=== PATIENT | female | born 1965 | race Caucasian/White ===

== ENCOUNTER 2020-04-21 07:57 | Outpatient (REF) | payer OTHER, SELFPAY ==
--- NOTE | ~2020-04-21 | MM_ITS ---
EXAMINATION: MM SCREENING DIGITAL BREAST TOMOSYNTHESIS, BILATERAL CLINICAL INFORMATION: Screening. Asymptomatic. The lifetime risk of breast cancer based on the Tyrer-Cuzick Model is 6%. COMPARISON: Mammography: 04/03/2018 (new baseline). TECHNIQUE: Digital breast tomosynthesis is performed in both the craniocaudal and mediolateral oblique views along with computer-aided detection (CAD). Synthesized 2D images are generated from the tomosynthesis. FINDINGS: There are scattered areas of fibroglandular density (ACR BI-RADS breast composition Category b). There are no significant masses, abnormal calcifications, or other abnormalities. Parenchymal pattern is similar to prior studies. Skin contours are smooth. MM/MM tomosynthesis screening BI IMPRESSION: No mammographic evidence of malignancy. ASSESSMENT: BI-RADS 1: Negative RECOMMENDATION: Routine annual mammography screening. This patient's information was entered into a reminder system with a target due date for their next mammogram.
== END 2020-04-21 07:58 | disposition home or self-care (01) ==
LOC: HO.MAMMO 07:57
PROVIDERS: Visit Provider Registered Nurse
DX: Z12.31 Encounter for screening mammogram for malignant neoplasm of breast (principal)
CPT/HCPCS: 77063; 77067

== ENCOUNTER → 2020-06-15 09:09 | Outpatient (BNVA) | payer OTHER, SELFPAY | PROVIDERS: Visit Provider Nurse Practitioner | DX: Z12.11 Encounter for screening for malignant neoplasm of colon (principal) | CPT/HCPCS: Q3014 ==

== ENCOUNTER 2022-05-16 13:44 | Outpatient (REF) | payer OTHER, SELFPAY ==
--- NOTE | ~2022-05-16 | MM_ITS ---
EXAMINATION: MM SCREENING DIGITAL BREAST TOMOSYNTHESIS, BILATERAL CLINICAL INFORMATION: Screening. Asymptomatic. The lifetime risk of breast cancer based on the Tyrer-Cuzick Model is 10%. COMPARISON: Mammography: 04/21/2020, 04/03/2018 (new baseline). TECHNIQUE: Digital breast tomosynthesis is performed in both the craniocaudal and mediolateral oblique views along with computer-aided detection (CAD). Synthesized 2D images are generated from the tomosynthesis. FINDINGS: There are scattered areas of fibroglandular density (ACR BI-RADS breast composition Category b). There are no significant masses, abnormal calcifications, or other abnormalities. Parenchymal pattern is similar to prior studies. There is no developing density or architectural abnormality. The axilla and skin contours are unremarkable. No significant changes. MM/MM tomosynthesis screening BI IMPRESSION: No mammographic evidence of malignancy. ASSESSMENT: BI-RADS 1: Negative RECOMMENDATION: Routine annual mammography screening. This patient's information was entered into a reminder system with a target due date for their next mammogram.
== END 2022-05-16 13:45 | disposition home or self-care (01) ==
LOC: HO.MAMMO 13:44
PROVIDERS: PCP Nurse Practitioner Primary Care; Visit Provider Nurse Practitioner Primary Care
DX: Z12.31 Encounter for screening mammogram for malignant neoplasm of breast (principal)
CPT/HCPCS: 77063; 77067

== ENCOUNTER 2022-11-21 09:24 | Outpatient (REF) | payer OTHER, SELFPAY ==
[2022-11-21 11:48] LABS: Estimated Average Glucose 131 mg/dL; Hemoglobin A1c % 6.2 % (<6.0)
[2022-11-21 12:46] LABS: Anion Gap 19 (12-20); Blood Urea Nitrogen 20 mg/dL (9-16); Calcium 10.2 mg/dL (8.4-10.2); Carbon Dioxide 22 mmol/L (22-29); Chloride 104 mmol/L (96-108); Cholesterol 150 mg/dL (<200); Creatinine Urine 104.84 mg/dL; Estimated Glomerular Filt Rate > 60; Glucose Random 122 mg/dL (60-115); HDL Cholesterol 47 mg/dL (>40); LDL Cholesterol Calculated 78 mg/dL (<100); Microalbum/Creatinine Ratio Ur 27.6 ug/mg cr (<30); Sodium 140 mmol/L (135-145); Triglycerides 125 mg/dL (<150)
[2022-11-21 12:47] LABS: TSH reflex Free T4 1.45 uIU/mL (0.32-4.0)
[2022-11-25 01:38] LABS: VITAMIN D (1,25 OH) D3 34 pg/mL; Vit D (1,25-Dihydroxy) Total 34 pg/mL (18-72); Vitamin D (1,25 OH) D2 <8 pg/mL
== END 2022-11-21 09:25 | disposition home or self-care (01) ==
LOC: HO.HHCL 09:24
PROVIDERS: Visit Provider Nurse Practitioner Primary Care
DX: Z00.00 Encounter for general adult medical examination without abnormal findings (principal); E11.69 Type 2 diabetes mellitus with other specified complication; E78.5 Hyperlipidemia, unspecified; M85.859 Other specified disorders of bone density and structure, unspecified thigh; E21.3 Hyperparathyroidism, unspecified; I10 Essential (primary) hypertension
CPT/HCPCS: 36415; 80048; 80061; 82043; 82570; 82652; 83036; 84443

== ENCOUNTER 2023-05-25 12:39 | Outpatient (REF) | payer MEDICAID, SELFPAY ==
--- NOTE | ~2023-05-25 | MM_ITS ---
EXAMINATION: BONE DENSITOMETRY CLINICAL INDICATION: Hyperparathyroidism. COMPARISON: Baseline BD dated 12/25/2018. TECHNIQUE: Using a Estify DXA System (software version: 13.1) manufactured by [email or web address], dual-energy x-ray absorptiometry was performed of the lumbar spine, left hip and left forearm radius 33%. The images are of good technical quality. Summary results are attached. FINDINGS: LEFT FEMUR, NECK: Current: BMD 0.769 g/cm2, Z-score -0.9, T-score -1.9, osteopenia. Baseline: BMD 0.750 g/cm2. LEFT FEMUR, TOTAL: Current: BMD 0.831 g/cm2, Z-score -0.7, T-score -1.4, osteopenia, 5.2% decrease from baseline (<5% change is not significant). Baseline: BMD 0.877 g/cm2. AP SPINE L1-L3 (excluding L4): The data of L1-L4 has been changed to exclude the L4 vertebral body, because degenerative sclerosis at this level may cause overestimation of lumbar spine density. Current: BMD 0.924 g/cm2, Z-score -1.1, T-score -2.1, osteopenia, 2.0% increase from baseline (<5% change is not significant). Baseline: BMD 0.906 g/cm2. LEFT FOREARM RADIUS 33%: BMD 0.812 g/cm2, Z-score -0.2, T-score -0.9, normal, 3.7% decrease from baseline (<5% change is not significant). Baseline: BMD 0.843 g/cm2. IDENTIFIED RISK FACTORS: Early menopause, secondary osteoporosis, hyperparathyroidism, hysterectomy. HISTORY OF FRACTURE: None listed. MEDICATIONS: Vitamin D. MM/XR DEXA appendicular skeleton IMPRESSION: 1. DIAGNOSIS: Osteopenia based on the lowest T-score value of -2.1 in the lumbar spine applying World Health Organization criteria. 2. 10-YEAR FRACTURE RISK PREDICTION, FRAX: Major osteoporotic fracture (clinical spine, forearm, hip or shoulder) 4.5%. Hip fracture 0.5%. 3. Treatment Recommendations: NOF guidelines recommend consideration for treatment in postmenopausal women and men age 50 and older presenting with the following: -A hip or vertebral (clinical or morphometric) fracture. -T-score less than or equal to -2.5 at the femoral neck or spine after appropriate evaluation to exclude secondary causes. -Low bone mass at the hip or spine and a 10-year fracture probability by FRAX of greater than or equal to 3% for hip fracture or greater than or equal to 20% for major osteoporotic fracture based on the [place] adapted WHO algorithm. 4. Other Recommendations: All treatment decisions require clinical judgment and consideration of individual patient factors, including patient preferences, comorbidities, previous drug use, risk factors not captured in the FRAX model (e.g. frailty, falls, vitamin D deficiency, increased bone turnover, interval significant decline in bone density) and possible under or overestimation of fracture risk by FRAX. Additional medical evaluation for secondary cause of low bone mineral density may be appropriate. FUTURE SCAN RECOMMENDATION: People with diagnosed cases of osteoporosis or at high risk for fracture should have regular bone mineral density tests. For patients eligible for Medicare, routine testing is allowed once every 2 years. The testing frequency can be increased to one year for patients who have rapidly progressing disease, those who are receiving or discontinuing medical therapy to restore bone mass, or have additional risk factors.
== END 2023-05-25 12:40 | disposition home or self-care (01) ==
LOC: HO.MAMMO 12:39
PROVIDERS: PCP Nurse Practitioner Primary Care; Visit Provider Nurse Practitioner Primary Care
DX: M85.859 Other specified disorders of bone density and structure, unspecified thigh (principal); E21.3 Hyperparathyroidism, unspecified; Z12.31 Encounter for screening mammogram for malignant neoplasm of breast; Z13.820 Encounter for screening for osteoporosis; Z78.0 Asymptomatic menopausal state
CPT/HCPCS: 77063; 77067; 77081

== ENCOUNTER → 2023-05-25 13:30 | Outpatient (BNV) | payer MEDICAID, SELFPAY | PROVIDERS: PCP Nurse Practitioner Primary Care; Visit Provider Radiology Diagnostic Radiology | DX: Z12.31 Encounter for screening mammogram for malignant neoplasm of breast (principal) | CPT/HCPCS: 77063; 77067 ==

== ENCOUNTER 2023-12-19 08:51 | Outpatient (REF) | payer MEDICAID, SELFPAY ==
[2023-12-19 11:29] LABS: MANUAL DIFF FLAG NO
[2023-12-19 11:35] LABS: Basophils Absolute Auto 0.1 X10*3/uL (0.0-0.2); Basophils Percent Auto 0.6 % (0-2); Eosinophils Absolute Auto 0.2 X10*3/uL (0.0-0.4); Eosinophils Percent Auto 2.2 % (0-4); Hematocrit 35.3 % (37.0-47.0); Hemoglobin 11.2 g/dl (12.0-16.0); Imm Gran Abs Auto 0.04 X10*3/uL (0.00-0.03); Imm Gran Pct Auto 0.4 % (0.0-0.4); Lymphocytes Absolute Auto 2.4 X10*3/uL (1.2-4.9); Lymphocytes Percent Auto 26.8 % (20-40); Mean Corpuscular HGB Conc 31.7 g/dl (31.0-35.0); Mean Corpuscular Hemoglobin 29.1 pg (27.0-33.0); Mean Corpuscular Volume 91.7 fL (80.0-98.0); Mean Platelet Volume 9.9 fL (9.4-12.3); Monocytes Absolute Auto 0.6 X10*3/uL (0.1-1.2); Monocytes Percent Auto 6.7 % (2-11); Neutrophils Absolute Auto 5.7 x10*3/uL (2.0-8.3); Neutrophils Percent Auto 63.3 % (45-73); Platelet Count 421 X10*3/uL (160-400); Red Blood Count 3.85 X10*6/uL (4.20-5.50); Red Cell Distribution Width 12.5 % (11.0-16.0); White Blood Count 9.1 X10*3/uL (4.8-10.8)
[2023-12-19 12:01] LABS: Alanine Aminotransferase 25 U/L (0-31); Albumin Level 4.5 g/dL (3.5-5.0); Alkaline Phosphatase 76 U/L (39-117); Anion Gap 15 (12-20); Aspartate Amino Transferase 34 U/L (5-31); Bilirubin Total 0.3 mg/dL (0.0-1.0); Blood Urea Nitrogen 24 mg/dL (9-16); Calcium 10.8 mg/dL (8.4-10.2); Carbon Dioxide 23 mmol/L (22-29); Chloride 105 mmol/L (96-108); Estimated Glomerular Filt Rate > 60; Glucose Random 140 mg/dL (60-115); Potassium 4.6 mmol/L (3.3-5.1); Sodium 138 mmol/L (135-145); Total Protein 8.2 g/dL (6.5-8.0)
[2023-12-19 13:04] LABS: Iron 87 mcg/dL (30-160); Percent Iron Saturation 30 % (15-50); Total Iron Binding Capacity 292 mcg/dL (228-428); Unsaturated Iron Binding 205 ug/dL
[2023-12-19 13:14] LABS: Ferritin 53 ng/mL (10-250)
== END 2023-12-19 08:52 | disposition home or self-care (01) ==
LOC: HO.HHCL 08:51
PROVIDERS: Visit Provider Student in an Organized Health Care Education/Training Program
DX: I10 Essential (primary) hypertension (principal); D64.9 Anemia, unspecified
CPT/HCPCS: 36415; 80053; 82728; 83540; 85025

== ENCOUNTER 2024-07-16 08:41 | Outpatient (REF) | payer MEDICAID, SELFPAY ==
--- OUTSIDE RECORDS SUMMARY | 2024-07-16 09:04 | XMS_ITS | Clinical Summary ---
Author Organization [employer] Address [address] [facility] [address] [place] [address] Care Team Providers Care Corporate Webmaster Name Role Phone Jose Juan Durbin Primary Care Provider [phone] Allergies No known active allergies Medications TRUEplus Lancets 33G miscIndications:T ype 2 diabetes mellitus without complication, without long-term current use of insulin (CMS/[facility]) TEST BLOOD SUGAR FOUR TIMES DAILY 100 each 11 01/27/20 22 Active glucose (Glutose) 40 % gel oral gelIndications:Ty pe 2 diabetes mellitus with hyperlipidemia (CMS/HCC) (CMS/HCC) Take 15 g by mouth if needed for low blood sugar. 31 g 3 05/28/19 23 Active glucose blood (FREESTYLE LITE) test stripIndications: Type 2 diabetes mellitus without complication, without long-term current use of insulin (CMS/HCC) Use 1 by To Skin route 4 times every day 100 each 11 04/20/19 24 Active docusate sodium (Colace) 100 MG capsule Take 1 capsule by mouth in the morning and 1 capsule in the evening. 11/17/19 24 Active ondansetron ODT (Zofran-ODT) 4 MG disintegrating tablet DISSOLVE 1 TABLET BY MOUTH EVERY 6 HOURS NEEDED FOR NAUSEA AND VOMITING FOR 3 DAYS 11/17/19 24 Active benzocaine (Orajel) 10 % mucosal gel Use in the mouth or throat every 6 (six) hours if needed for mucositis. 5.3 g 11/23/19 24 Active acetaminophen (Tylenol) 325 MG tablet Take 3 tablets (975 mg) by mouth every 6 (six) hours if needed for mild pain. 90 tablet 11/23/19 24 Active LORazepam (Ativan) 0.5 MG tabletIndications :Anxiety Take 1 tablet (0.5 mg) by mouth every 12 (twelve) hours if needed for anxiety for up to 14 days. 28 tablet 11/23/19 24 Active atorvastatin (Lipitor) 40 MG tablet Take 1 tablet (40 mg) by mouth Once per day. 90 tablet 12/05/19 24 Active metFORMIN (Glucophage) 1000 MG tablet TAKE 1 TABLET BY MOUTH TWICE DAILY IN THE MORNING AND IN THE EVENING WITH MEALS 180 tablet 3 03/05/19 25 Active cholecalciferol (D3 Super Strength) 50 MCG (1999) capsuleIndication s:Vitamin D deficiency TAKE 1 CAPSULE BY MOUTH EVERY DAY 90 capsule 2 06/28/19 25 Active clopidogrel (Plavix) 75 MG tabletIndications :Cerebrovascular accident (CVA), unspecified mechanism (CMS/HCC) 1 tablet once daily 90 tablet 06/28/19 25 Active olmesartan-hydroC HLOROthiazide (Benicar HCT) 40-12.5 MG tabletIndications :Essential hypertension Take 1 tablet by mouth Once per day. 90 tablet 1 06/28/19 25 2025 Active famotidine (Pepcid) 20 MG tabletIndications :Gastroesophageal reflux disease, unspecified whether esophagitis present Take 1 tablet (20 mg) by mouth Once daily as needed for heartburn. 90 tablet 06/28/19 25 Active aspirin 81 MG EC tabletIndications :Cerebrovascular accident (CVA) due to occlusion of cerebral artery (CMS/HCC),Type 2 diabetes mellitus with hyperlipidemia (CMS/HCC) (CMS/HCC) Take 1 tablet (81 mg) by mouth Once per day. 90 tablet 3 07/12/19 25 2025 Active cholecalciferol (D3 Super Strength) 50 MCG (1999 UT) capsule TAKE 1 CAPSULE BY MOUTH EVERY DAY 90 capsule 2 07/12/19 24 2024 Discontinued(R eorder (will not trigger notification to Pharmacy)) famotidine (Pepcid) 20 MG tablet TAKE 1 TABLET BY MOUTH AT BEDTIME NEEDED HEARTBURN 90 tablet 01/11/20 24 2024 Discontinued(R eorder (will not trigger notification to Pharmacy)) aspirin 325 MG EC tablet TAKE 1 TABLET BY MOUTH EVERY DAY 90 tablet 1 02/08/19 25 2024 Discontinued(D ose adjustment) lisinopril-hydroC HLOROthiazide 20-12.5 MG tabletIndications :Primary hypertension Take 1 tablet by mouth Once per day. 90 tablet 03/05/19 25 2024 Discontinued(I neffective) clopidogrel (Plavix) 75 MG tabletIndications :Cerebrovascular accident (CVA), unspecified mechanism (CMS/HCC) 1 tablet once daily 90 tablet 03/11/19 25 2024 Discontinued(R eorder (will not trigger notification to Pharmacy)) Active Problems Problem Noted Date Diagnosed Date Cerebrovascular accident (CV A) due to occlusion of cerebral artery 12/05/2023 Assessment & Plan (12/05/2023 7:24 PM EDT): recent CVA w left side hemiparesis dxed in 10/23/2023 -hb1AC 08/2023 6.9 Has PT at home twice a week,speech tx tomorrow last apt at home,VNA weekly Using RW and wheelchair -checked w pharmacy today and all meds refilled except for Lipitor new dose of 40 mg daily and ASA 325 mg daily -sent today -increase lisinopril to 20 from 10 mg daily/continue HDCTZ 12.5 mg daily To keep BP goal of <130/80 -ordered today chem and CBC to have it done in 2 weeks after lisinopril dose was increased today -got letter informing diagnosis and help w daily living activities to see if this can help daughter to come w pt for assistance -Requested today staff trainer to help pt getting PROJECT ASSISTANT services -Flu and Covid 19 vaccine offered today but refused , advised to consider and if change her mind to go to vaccine clinic -continue care w cards --Cards Apt for 12/07/2023 ,to complete cardiac eval -advised to continue w neurologist in regards recs for dual antiplatelet -will complete 3 months in mid 01/2024 --I called today neurologist office--Md Romy Sargent at [phone]-- to confirm plan and ASA dose but not able to reach left my # for a call back w senior front end developer staff -continue care w PCP in next 4 to 6 weeks to f up DM control Hospital discharge follow-up 12/05/2023 Osteopenia of neck of femur 08/18/2022 Overview (08/14/2023): DEXA stable, updated 05/2023 IMPRESSION: 1. DIAGNOSIS: Osteopenia based on the lowest T-score value of -2.1 in the lumbar spine applying World Health Organization criteria. 2. 10-YEAR FRACTURE RISK PREDICTION, FRAX: Major osteoporotic fracture (clinical spine, forearm, hip or shoulder) 4.5%. Hip fracture 0.5%. Right shoulder tendinitis 05/27/2022 Assessment & Plan (05/27/2022 9:55 AM EDT): probably overuse. Refer to PT and FU with PCP in 3 months Use meloxicam 7.5-50mg per day x1 week and continue Tylenol PRN Use diclofenac gel on affected area PRN. Pt may or may not need to request FMLA to be able to go to PT sessions.. Type 2 diabetes mellitus with hyperlipidemia (CM S/[facility]) 04/04/2022 Overview (08/14/2023): Lab Results Component Value Date HGBA1C 6.7 (A) 04/03/2023 HGBA1C 6.2 (H) 11/21/2022 HGBA1C 6.6 (A) 08/18/2022 Stable, A1c goal </= 7.0 Metformin 1G BID Foot exam: due at follow-up Eye exam: no retinopathy or mac edema 04/2022 Dental: UTD in DR per pt PNA (PCV 20 +/- past PPSV): due, declined in past TDap/Td: UTD KYLIE/ARB: yes ASA: no Assessment & Plan (05/27/2022 9:59 AM EDT): Controlled. 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 Continue to encourage low salt diet, regular exercise, home BP monitoring, compliance with medications. Call clinic if BP is frequently >150/90 Go to ED/call 911 if > 170/100 and having sx such as JOHANSEN, visual changes, chest pain, SOB Last renal function: Lab Results Component Value Date GLUCOSE 140 (H) 12/19/2023 NA 138 12/19/2023 K 4.6 12/19/2023 CO2 23 12/19/2023 CL 105 12/19/2023 BUN 24 (H) 12/19/2023 CREATININE 0.86 12/19/2023 EGFR >60 12/19/2023 Lab Results Component Value Date MICROALBCREA 21 01/19/2021 Lab Results Component Value Date MICROALBCREU 27.6 11/21/2022 Assessment & Plan (05/27/2022 9:56 AM EDT): Uncontrolled today , may be related to pain. Counseled re low salt diet/increase moderate physical activity. Check home BP BIW and prn CP/JOHANSEN/GRAYSON Non smoking patient. Check BP twice per week and FU with PCP. Encounters Date Type Department Care Team Description 07/09/2024 Telephone [facility] [address] [place] [address] Jose Juan Durbin ANP Referral 2024 Telephone [facility] [address] [place], [place] [phone] Jose Juan Durbin ANP Durable Medical Equipment 06/27/2024 10:00 AM EDT Office Visit [facility] [address] [place] [address] Jose Juan Durbin ANP Type 2 diabetes mellitus with hyperlipidemia (CMS/HCC) (CMS/HCC) (Primary Dx); Essential hypertension; Vitamin D deficiency; Cerebrovascular accident (CVA), unspecified mechanism (CMS/HCC); Anemia, unspecified type; Gastroesophageal reflux disease, unspecified whether esophagitis present; Screening mammogram for breast cancer; Nondisplaced fracture of greater tuberosity of right humerus, subsequent encounter for fracture with routine healing; Bilateral edema of lower extremity; Hemiparesis affecting left side as late effect of cerebrovascular accident (CMS/HCC) 06/27/2024 Travel 06/26/[address] [address] Jose Juan Durbin ANP chartprep 06/07/2024 Telephone [facility] [address] [place], [place] [phone] Jose Juan Durbin ANP Nurse Triage 05/01/[address] [phone] Jose Juan Durbin ANP Appointment Request 04/19/2024 Population [facility] Risk Score [facility] () Department [address] [place] [phone] Provider, Population Health Generic from Last 3 Months Immunizations Immunization Administration Dates Next Due Influenza injectable quadriv alent preservative free 11/28/2022,12/13/2021,11/11/2020,2019,04/02/2018 Influenza, IIV3, injectable 12/19/2023 Moderna Covid-19 Vaccine 12+ 05/05/2021,06/03/19,05/05/2020 Pfizer Covid-19 Vaccine 12+ Bivalent 12/13/2021 Td (adult), 5 Lf tetanus tox oid, preservative free, adsorbed 04/04/2022 Zoster, Recombinant 12/26/2022,10/20/2022 Social History Tobacco Use Types Packs/Day Years Used Date Smoking Tobacco: Never Smokeless Tobacco: Never Tobacco Cessation:Counseling Given: Not Answered Alcohol Use Standard Drinks/Week Comments Not Currently 0 (1 standard drink = 0.6 oz pur e alcohol) Housing Stability Answer Date Recorded What is your housing situation today? I do not have housing (Staying with others, in a hotel, in a snf, living outside on the street, on a beach, in a car, or in a park 03/23/[address] you li ve. Do you have problems with any of the following? None of the above 03/23/2023 Food Insecurity Answer Date Recorded Within the past 12 months, y ou worried that your food would run out before you got money to buy more: Sometimes True 2023 Within the past 12 months,th e food you bought just didn't last and you didn't have enough money to get more: Sometimes True 03/23/2023 Transportation Answer Date Recorded In the past 12 months, has l ack of transportation kept you from medical appts, meetings, work or from getting things needed for daily living? Yes, it has kept me from medical appointments or getting medications. 03/23/2023 Utilities Answer Date Recorded In the past 12 months, has t he electric, gas, oil or water company threatened to shut off services in your home? No 11/21/2022 Depression Answer Date Recorded Patient Health Questionnaire-2 Score 0 04/04/2022 Internet Access Answer Date Recorded Internet Access Q1 Yes 10/09/2023 Internet Access Q2 Not on file 10/09/2023 Comments No Sex and Gender Information Value Date Recorded Sex Assigned at Female 12/06/2021 10:35 AM EDT Legal Sex Female 10:35 AM EDT Gender Identity Female 12/06/2021 10:35 AM EDT Sexual Orientation Straight 12/06/2021 10 :35 AM EDT Last Filed Vital Signs Vital Sign Reading Time Taken Comments Blood Pressure 160/82 06/27/2024 10:11 AM EDT Pulse 74 06/27/2024 10:11 AM EDT Temperature 36.7 ??C (98 ??F) 12/05/2023 1:43 PM EDT Respiratory Rate 16 06/27/2024 10:11 AM EDT Oxygen Saturation 99% 09/11/2023 10:57 AM EDT Inhaled Oxygen Concentration - - Weight 59.9 kg (132 lb) 06/27/2024 10:11 AM EDT Height 154.9 cm (5' 1 ) 06/27/2024 10:11 AM EDT Body Mass Index 24.94 06/27/2024 10:11 AM EDT Plan of Treatment Upcoming Encounters Date Type Department Care Team (Late st Contact Info) Description 07/22/2024 11:30 AM EDT Office Visit [facility] [address] [place] [address] Jose Juan Durbin, PETER [address] [place] [address] 10/10/2024 9:00 AM EDT Office Visit [facility] [address] [place] [address] Gisel Watts, OD [address] [place] [address] Health Maintenance Due Date Last Done Comments CT Colonography 1966 Colonoscopy 1966 Colorectal Cancer Screening 1966 FIT DNA/Cologuard 1966 FIT 1966 FOBT 1966 HIV Screening 1965 Sigmoidoscopy 1966 Diabetes: Foot Exam 1976 Hepatitis C Screening 1984 Hepatitis B Vaccines (1 of 3 - 19+ 3-dose series) 1985 Pneumococcal Vaccine: 50+ Years (1 of 2 - PCV) 1985 DTaP/Tdap/Td Vaccines (1 - Tdap) 04/05/2022 04/04/2022 Depression Screening 04/04/2023 04/04/2022, 04/04/19 23 COVID-19 Vaccine ( - season) 2023 12/13/2021, 05/05/2021, 06/02/2020, Additional history exists Lipid Panel 11/22/2023 11/21/2022, 08/06, 01/19/2021, Additional history exists SDOH Screening 03/23/2024 03/23/2023 Eye Exam 05/02/2024 05/02/2022, 04/07, 05/02/2022, Additional history exists Mammogram 05/24/2024 05/25/2023, 05/07, 04/21/2020, Additional history exists Diabetes: Hemoglobin A1C 09/27/2024 025, 08/14/2023, 04/03/2023, Additional history exists Alcohol/Substance Use Screening 06/27/2025 06/27/2024 Disability Screening 06/27/2025 06/27/2024 Tobacco Screening 06/27/2025 06/27/2024 RSV Patients and Patients Aged 60 years or older (1 - 1-dose 75+ series) 2041 Cervical Cancer Screening Discontinued HPV/Cotest Discontinued 12/05/2018 Zoster Vaccines Completed 12/26/2022, 10/20/2022 Influenza Vaccine Completed 12/19/2023, , 12/13/2021, Additional history exists HIB Vaccines Aged Out No longer eligi ble based on patient's age to complete this topic HPV Vaccines Aged Out No longer eligi ble based on patient's age to complete this topic Hepatitis A Vaccines Aged Out No long er eligible based on patient's age to complete this topic IPV Vaccines Aged Out No longer eligi ble based on patient's age to complete this topic Meningococcal B Vaccine Aged Out No l onger eligible based on patient's age to complete this topic Meningococcal Vaccine Aged Out No ebenezer prabhu eligible based on patient's age to complete this topic Pap Smear Discontinued RSV under 20 months Aged Out No longe r eligible based on patient's age to complete this topic Rotavirus Vaccines Aged Out No longer eligible based on patient's age to complete this topic Procedures Procedure Name Priority Date/Time Associated Diagnosis Comments AMB REFERRAL TO ORTHOPAEDIC SURGERY Urgent 07/10/2024 Nondisplaced fracture of greater tuberosity of right humerus, subsequent encounter for fracture with routine healing POCT GLUCOSE Routine 06/27/2024 10:22 AM EDT Type 2 diabetes mellitus with hyperlipidemia (CMS/HCC) (CMS/HCC) POCT GLYCATED HEMOGLOBIN, TOTAL Routine 06/27/2024 10:21 AM EDT Type 2 diabetes mellitus with hyperlipidemia (CMS/HCC) (CMS/HCC) BI MAMMOGRAM SCREENING TOMOSYNTHESIS BILATERAL Routine 05/25/2023 1:00 PM EDT LIPID PANEL, STANDARD Routine 11/21/2022 9:27 AM EDT Type 2 diabetes mellitus with hyperlipidemia (CMS/HCC) ZZZ HISTORICAL HPV MRNA E6/E7 Routine 12/05/2018 10:31 AM EDT from Last 3 Months or Most Recently Relevant to Health Maintenance Results * Referral to Orthopaedic Surgery (07/10/2024) Result Sara Durbin ANP OUTPATIENT REFERRAL ORDERABLES F inal Result * POCT Glucose (06/27/2024 10:22 AM EDT) Glucose Blood, POC 107 60 - 200 mg/dL QC Media Lot # [id number] Lot# Expiration Date ,025 Blood Capillary blood specimen / Unknown 06/27/2024 10:22 AM EDT us Jose Juan Durbin ANP POINT OF CARE TEST ENTER/EDIT OR DERABLES Final Result * (ABNORMAL) POCT HGB A1C (06/27/2024 10:21 AM EDT) Hemoglobin A1C 7.0(A) 4.0 - 6.0 % QC Media Lot # [id number] Lot# Expiration Date ,027 Blood 06/27/2024 10:2 1 AM EDT us Jose Juan Durbin ANP POINT OF CARE TEST ENTER/EDIT OR DERABLES Final Result * BI Mammogram Screening Tomosynthesis Bilateral (05/25/2023 1:00 PM EDT) Anatomical Region Laterality Modality Breast Bilateral Mammography 05/25/2023 1:00 PM EDT Narrative 06/24/2023 11:45 AM EDT ? [facility] ? [address] ?[place] [address] ? Mammography Report ? Signed ? Patient: Rehman,Tamiko E ?MR#: [id number] ?? [id number] ? : 1965 ?Acct:[id number] ? Age/Sex: 57 / F ?ADM Date: 04/18/24 ? Loc: HO.MAMMO ? Attending Dr: Jose Juan Durbin RETAIL ADMINISTRATIVE ASSISTANT ? Ordering Physician: JOSE JUAN DURBIN NP ?Results: 1Negative ? Date of Service: 05/25/23 ?Follow Up: 1 Year From Orig ?? inal Mammogram ? Procedure(s): MM tomosynthesis screening BI ?? Accession Number(s): [id number] ? cc: JOSE JUAN DURBIN NP ? EXAMINATION: ?? MM SCREENING DIGITAL BREAST TOMOSYNTHESIS, BILATERAL ? CLINICAL INFORMATION: ? Screening. Asymptomatic. ? COMPARISON: ?? Mammography: This study is compared with prior exams dating back to ?? 2020. ? TECHNIQUE: ?? Digital breast tomosynthesis is performed in both the craniocaudal and ?? mediolateral oblique views along with computer-aided detection (CAD). ?? Synthesized 2D images are generated from the tomosynthesis. ? FINDINGS: ?? There are scattered areas of fibroglandular density (ACR BI-RADS breast ?? composition Category b). ? There are no significant masses, abnormal calcifications, or other ?? abnormalities. ? MM/MM tomosynthesis screening BI ?? IMPRESSION: ?? No mammographic evidence of malignancy. ? ASSESSMENT: ? BI-RADS BI-RADS 1 - Negative ? RECOMMENDATION: ?? Routine annual mammography screening. ? 1 year F/U ? This examination should not preclude the clinical evaluation of a ?? suspicious palpable abnormality. ? This patient's information was entered into a reminder system with a ?? target due date for their next mammogram. ? Dictated By: ?Gia Dc MD ? Signed By: ?<Electronically signed by Gia Dc MD in OV> ? 06/24/23 1141 ? DD/ 1300 ? TD/TT: ? Film And Video Graphics Designer: ? Procedure Note Donyosvanyter, Image - 06/24/2023 Kat [facility] [address] [place] [address] Mammography Report Signed Patient: Tamiko Rehman EMR#: [id number] : 1965Acct:[id number] Age/Sex: 57 / FADM Date: 05/25/23 Loc: MAMMO Attending Dr: Jose Juan Durbin NP Ordering Physician: JOSE JUAN DURBIN NPResults: 1Negative Date of Service: 05/25/23Follow Up: 1 Year From Orig inal Mammogram Procedure(s): MM tomosynthesis screening BI Accession Number(s): [id number] cc: JOSE JUAN DURBIN NP EXAMINATION: MM SCREENING DIGITAL BREAST TOMOSYNTHESIS, BILATERAL CLINICAL INFORMATION: Screening. Asymptomatic. COMPARISON: Mammography: This study is compared with prior exams dating back to 2020. TECHNIQUE: Digital breast tomosynthesis is performed in both the craniocaudal and mediolateral oblique views along with computer-aided detection (CAD). Synthesized 2D images are generated from the tomosynthesis. FINDINGS: There are scattered areas of fibroglandular density (ACR BI-RADS breast composition Category b). There are no significant masses, abnormal calcifications, or other abnormalities. MM/MM tomosynthesis screening BI IMPRESSION: No mammographic evidence of malignancy. ASSESSMENT: BI-RADS BI-RADS 1 - Negative RECOMMENDATION: Routine annual mammography screening. 1 year F/U This examination should not preclude the clinical evaluation of a suspicious palpable abnormality. This patient's information was entered into a reminder system with a target due date for their next mammogram. Dictated By: Gia Dc MD Signed By: <Electronically signed by Gia Dc MD in OV> 06/24/23 1141 DD/ 1300 TD/TT: Film And Video Graphics Designer: Jose Juan Durbin ANP IMG BI PROCEDURES Edited Result - Final * Lipid Panel, Standard (11/21/2022 9:27 AM EDT) Triglycerides 125 <150 mg/dL [facility] Comment:Desirable Triglyceri de: less than 150 mg/dLBorderline High Triglyceride 150-199 mg/dLHigh Triglyceride: 200-499 mg/dLVery High Triglyceride: greater than or equal to 5OO mg/dL Cholesterol 150 <200 mg/dL [facility] Comment:Desirable Cholestero l: less than 200 mg/dLBorderline High Cholesterol: 200-239 mg/dLHigh Cholesterol: greater than 239 mg/dL LDL Cholesterol Calculated 78 <100 mg/dL [facility] Comment:Desirable LDL: less than 100 mg/dLNear Optimal/Above Optimal LDL: 110- 129 mg/dLBorderline High LDL: 130-159 mg/dLHigh LDL: 160-189 mg/dLVery High LDL: greater than or equal to 190 mg/dL HDL Cholesterol 47 >40 mg/dL [facility] Comment:Desirable HDL: great er than 40 mg/dL Note: This HDL assay may give artificially low results in patients with liver disease. Blood Venous blood specimen / Unknown 11/21/2022 9:27 AM EDT 11/21/2022 11:13 AM EDT us Jose Juan Durbin ANP LAB BLOOD ORDERABLES Final Resul t [facility] [address] [place] [phone] * HPV mRNA E6/E7 (12/05/2018 10:31 AM EDT) HPV mRNA E6/E7 Not Detected NOT DETECTED [facility] Comment: This test was performed using the APTIMA(R) HPV Assay ([employer] This assay detects E6/E7 viral messenger RNA (mRNA) from 14 high-risk HPV types (16,18,31,33,35,39,45,51, 52,56,58,59,66,68). For additional information please refer to: http://education.[employer]/faq/VIH518y2 (This link is being provided for informational/ educational purposes only.) The analytical performance characteristics of this assay have been determined by [employer] [place], [place]. The modifications have not been cleared or approved by the FDA. This assay has been validated pursuant to the CLIA regulations and is used for clinical purposes. Test Performed by [facility], [facility], [address] [place] [address] Juan José Mcgowan M.D., Ph.D., Director of Laboratories , CLIA [id number] Please note: ??Effective 10/19/2015, HPV testing will be performed using [employer] APTIMA test which targets mRNA. Detecting mRNA instead of DNA, as in older methods, offers significant improvements in specificity. 12/05/2018 10:3 1 AM EDT us Adali Roldan CNM HISTORICAL/NON ORDERABLE LABS Final Result [facility] Formerly [facility] [address] from Last 3 Months or Most Recently Relevant to Health Maintenance Insurance HSN [facility] STANDARD Care Teams Corporate Webmaster Relationship Specialty Start Date End Date Jose Juan Durbin ANP [address] [place] [phone] PCP - General Family Medicine 04/04/22
[2024-07-16 11:20] LABS: MANUAL DIFF FLAG NO
[2024-07-16 11:23] LABS: Basophils Absolute Auto 0.1 X10*3/uL (0.0-0.2); Basophils Percent Auto 0.5 % (0-2); Eosinophils Absolute Auto 0.2 X10*3/uL (0.0-0.4); Eosinophils Percent Auto 1.4 % (0-4); Hemoglobin 11.1 g/dl (12.0-16.0); Imm Gran Abs Auto 0.04 X10*3/uL (0.00-0.03); Imm Gran Pct Auto 0.3 % (0.0-0.4); Lymphocytes Absolute Auto 2.5 X10*3/uL (1.2-4.9); Lymphocytes Percent Auto 21.3 % (20-40); Mean Corpuscular HGB Conc 30.8 g/dl (31.0-35.0); Mean Corpuscular Hemoglobin 28.5 pg (27.0-33.0); Mean Corpuscular Volume 92.5 fL (80.0-98.0); Mean Platelet Volume 9.7 fL (9.4-12.3); Monocytes Absolute Auto 0.8 X10*3/uL (0.1-1.2); Neutrophils Absolute Auto 8.1 x10*3/uL (2.0-8.3); Neutrophils Percent Auto 69.5 % (45-73); Platelet Count 502 X10*3/uL (160-400); Red Blood Count 3.89 X10*6/uL (4.20-5.50); Red Cell Distribution Width 12.7 % (11.0-16.0); White Blood Count 11.6 X10*3/uL (4.8-10.8)
[2024-07-16 11:58] LABS: Anion Gap 14 (12-20); Blood Urea Nitrogen 19 mg/dL (9-16); Calcium 10.4 mg/dL (8.4-10.2); Carbon Dioxide 27 mmol/L (22-29); Chloride 105 mmol/L (96-108); Cholesterol 131 mg/dL (<200); Estimated Glomerular Filt Rate > 60; Glucose Random 127 mg/dL (60-115); HDL Cholesterol 34 mg/dL (>40); Iron 69 mcg/dL (30-160); LDL Cholesterol Calculated 73 mg/dL (<100); Percent Iron Saturation 23 % (15-50); Potassium 4.7 mmol/L (3.3-5.1); Sodium 141 mmol/L (135-145); Total Iron Binding Capacity 300 mcg/dL (228-428); Triglycerides 122 mg/dL (<150); Unsaturated Iron Binding 231 ug/dL
[2024-07-16 12:17] LABS: Vitamin B12 181 pg/mL (200-900)
== END 2024-07-16 08:42 | disposition home or self-care (01) ==
LOC: HO.HHCL 08:41
PROVIDERS: Visit Provider Nurse Practitioner Primary Care
DX: E11.69 Type 2 diabetes mellitus with other specified complication (principal); E78.5 Hyperlipidemia, unspecified; D64.9 Anemia, unspecified
CPT/HCPCS: 36415; 80048; 80061; 82306; 82607; 83540; 85025

== ENCOUNTER 2024-09-03 11:17 | Outpatient (REF) | payer MEDICAID, SELFPAY ==
--- OUTSIDE RECORDS SUMMARY | 2024-09-03 12:31 | XMS_ITS | Clinical Summary ---
Author Organization [facility] ity Address [address] [place] [address] Care Team Providers Care Freight Brake Operator Name Role Phone Unavailable Primary Care Provider Unavailabl e Social History Tobacco Use Types Packs/Day Years Used Date Smoking Tobacco: Never Assessed Comments Unknown Sex and Gender Information Value Date Recorded Sex Assigned at Not on file Legal Sex Female 4:57 PM EST Gender Identity Not on file Sexual Orientation Not on file Plan of Treatment Health Maintenance Due Date Last Done Comments Breast Cancer Screening 1966 DTaP,Tdap,and Td Vaccines (1 - Tdap) 1985 Hepatitis B Vaccines (1 of 3 - 19+ 3-dose series) 1985 Cervical Cancer Screening: P ap Smear 07/06/1987 Pneumococcal Vaccine: 50+ Ye ars (1 of 1 - PCV) 2016 Zoster Vaccines (1 of 2) 2016 COVID-19 Vaccine (2023-2 5 season) 2023 Depression Screening 02/07/2024 Influenza Vaccine (#1) 2024 HIB Vaccines Aged Out No longer eligi [...] on patient's age to complete this topic MMR Vaccines Aged Out No longer eligi ble based on patient's age to complete this topic Meningococcal ACWY Vaccine Aged Out N o longer eligible based on patient's age to complete this topic Meningococcal B Vaccine Aged Out No l onger eligible based on patient's age to complete this topic RSV Immunization Patients Un julia 20 months Aged Out No longer eligible b ased on patient's age to complete this topic Varicella Vaccines Aged Out No longer eligible based on patient's age to complete this topic
== END 2024-09-03 11:18 | disposition home or self-care (01) ==
LOC: HO.MAMMO 11:17
PROVIDERS: PCP Nurse Practitioner Primary Care; Visit Provider Nurse Practitioner Primary Care
DX: Z12.31 Encounter for screening mammogram for malignant neoplasm of breast (principal)
CPT/HCPCS: 77063; 77067

== ENCOUNTER → 2024-09-03 11:45 | Outpatient (BNV) | payer MEDICAID, SELFPAY | PROVIDERS: PCP Nurse Practitioner Primary Care; Visit Provider Internal Medicine | DX: Z12.31 Encounter for screening mammogram for malignant neoplasm of breast (principal) | CPT/HCPCS: 77063; 77067 ==

== ENCOUNTER 2024-10-17 17:19 | Outpatient (REF) | payer MEDICAID, SELFPAY ==
--- OUTSIDE RECORDS SUMMARY | 2024-10-17 10:00 | XMS_ITS | Encounter Summary ---
Author Organization [employer] Address [address] [facility] 7t [place] [address] Care Team Providers Care Assisted Living Coordinator Name Role Phone Marybeth Cody Primary Care Provider [phone] Reason for Visit * Reason Comments Follow-up HTN/DM Encounter Details Date Type Department Care Team (Latest Contact Info) Description 10/17/2024 10:00 AM EDT Office Visit [facility] [address] [place], [place] [phone] Marybeth Cody ANP [address] [place], [place] [phone] Screening for colon cancer (Primary Dx); Type 2 diabetes mellitus with hyperlipidemia (CMS/HCC) (CMS/HCC) Social History Tobacco Use Types Packs/Day Years Used Date Smoking Tobacco: Never Smokeless Tobacco: Never Alcohol Use Standard Drinks/Week Comments Not Currently 0 (1 standard drink = 0.6 oz pur e alcohol) Depression Answer Date Recorded Patient Health Questionnaire-9 Score 18 07/22/2024 Patient Health Questionnaire-9 Score 18 07/22/2024 Last PHQ-9: Questionnaire Data Not on file 0 07/22/2024 Housing Stability Answer Date Recorded What is your housing situation today? I have kyree cotto 07/22/[address] you li ve. Do you have problems with any of the following? None of the above 07/22/2024 Food Insecurity Answer Date Recorded Within the past 12 months, y ou worried that your food would run out before you got money to buy more: Never True 07/22/2024 Within the past 12 months,th e food you bought just didn't last and you didn't have enough money to get more: Never True Transportation Answer Date Recorded In the past 12 months, has l ack of transportation kept you from medical appts, meetings, work or from getting things needed for daily living? No 07/22/2024 Utilities Answer Date Recorded In the past 12 months, has t he electric, gas, oil or water company threatened to shut off services in your home? No 07/22/2024 Depression Answer Date Recorded Patient Health Questionnaire-2 Score 6 07/22/2024 Internet Access Answer Date Recorded Internet Access Q1 Yes 10/09/2023 Internet Access Q2 Not on file 10/09/2023 Comments No Sex and Gender Information Value Date Recorded Sex Assigned at Female 12/06/2021 10:35 AM EDT Legal Sex Female 10:35 AM EDT Gender Identity Female 12/06/2021 10:35 AM EDT Sexual Orientation Straight 12/06/2021 10 :35 AM EDT documented as of this encounter Last Filed Vital Signs Vital Sign Reading Time Taken Comments Blood Pressure 128/84 10/17/2024 11:01 AM EDT Pulse 76 10/17/2024 11:01 AM EDT Temperature 36.8 C (98.3 F) 10/17/2024 11:01 AM EDT Respiratory Rate 20 10/17/2024 11:01 AM EDT Oxygen Saturation - - Inhaled Oxygen Concentration - - Weight 59.5 kg (131 lb 2 oz) 10/17/2024 11:01 AM EDT Height 154.9 cm (5' 1 ) 10/17/2024 11:01 AM EDT Body Mass Index 24.78 10/17/2024 11:01 AM EDT documented in this encounter Plan of Treatment Upcoming Encounters Date Type Department Care Team (Late st Contact Info) Description 01/09/2025 9:30 AM EST Office Visit [facility] [address] [place] [address] Gisel Watts OD [address] [place] [address] Scheduled Orders Name Type Priority Associated Diagnoses Orde r Schedule Cologuard colon cancer screening Lab Routine Screening for colon cancer Ordered: 10/17/2024 documented as of this encounter Procedures Procedure Name Priority Date/Time Associated Diagnosis Comments POCT GLYCATED HEMOGLOBIN, TOTAL Routine 10/17/2024 11:03 AM EDT Type 2 diabetes mellitus with hyperlipidemia (CMS/HCC) ([facility]) POCT GLUCOSE Routine 10/17/2024 11:02 AM EDT Type 2 diabetes mellitus with hyperlipidemia (CMS/HCC) ([facility]) documented in this encounter Results * (ABNORMAL) POCT Hgb A1c (10/17/2024 11:03 AM EDT) Hemoglobin A1C 6.6(A) 4.0 - 5.7 % QC Media Lot # [id number] Lot# Expiration Date [id number] Blood 10/17/2024 11:0 3 AM EDT us Marybeth GREEN POINT OF CARE TEST ENTER/EDIT OR DERABLES Final Result * POCT Glucose (10/17/2024 11:02 AM EDT) Glucose Blood, POC 144 60 - 200 mg/dL QC Media Lot # [id number] Lot# Expiration Date [id number] Blood Capillary blood specimen / Unknown 10/17/2024 11:02 AM EDT us Marybeth GREEN POINT OF CARE TEST ENTER/EDIT OR DERABLES Final Result documented in this encounter Visit Diagnoses Diagnosis Screening for colon cancer- Primary Special screening for malignant neoplasms, colon Type 2 diabetes mellitus with hyperlipidemia (CMS/HCC) ([facility]) documented in this encounter Additional Health Concerns Assessment Noted Time PHQ-9 Depression Total Score: 18 06/16/2 025 3:11 PM EDT documented as of this encounter Care Teams Assisted Living Coordinator Relationship Specialty Start Date End Date Marybeth Cody ANP [address] [place] [id number] PCP - General Family Medicine 04/04/22 documented as of this encounter
[2024-10-17 18:14] LABS: Microalbum/Creatinine Ratio Ur 17.5 ug/mg cr (<30)
--- OUTSIDE RECORDS SUMMARY | 2024-10-17 19:00 | XMS_ITS | Encounter Summary ---
Author Organization [employer] Address [address] [facility] [address] 7t [place] [address] Care Team Providers Care Piece Jobber Name Role Phone Marybeth Cody Primary Care Provider [phone] Encounter Details Date Type Department Care Team (Latest Contact Info) Description 10/17/2024 Travel Social History Tobacco Use Types Packs/Day Years [...] AM EDT documented as of this encounter Plan of Treatment Upcoming Encounters Date Type Department Care Team (Late st Contact Info) Description 01/09/2025 9:30 AM EST Office Visit [facility] OPT[facility] [address] [place] [address] Gisel Watts OD [address] [place] [address] documented as of this encounter Visit Diagnoses Not on filedocumented in this encounter Additional Health Concerns Assessment Noted Time PHQ-9 Depression Total Score: 18 07/22/ 025 3:11 PM EDT documented as of this encounter Care Teams Piece Jobber Relationship Specialty Start Date End Date Marybeth Cody ANP [address] [place] [address] PCP - General Family Medicine 04/04/22 documented as of this encounter
--- OUTSIDE RECORDS SUMMARY | 2024-10-17 19:00 | XMS_ITS | Encounter Summary ---
Author Organization [employer] Address [address] [facility] 7t [place] [address] Care Team Providers Care Warp Spooler Name Role Phone Marybeth Cody Primary Care Provider [phone] Reason for Visit * Reason Onset Date Comments FYI 11/08/2023 Encounter Details Date Type Department Care Team ([facility] st Contact Info) Description 11/08/2023 Telephone [facility] [address] [place], [place] [phone] Marybeth Cody ANP [address] [place], [place] [phone] FYI Social History Tobacco Use Types Packs/Day Years Used Date Smoking Tobacco: Never Smokeless Tobacco: Never Alcohol Use Standard Drinks/Week Comments Not Currently 0 (1 standard drink = 0.6 oz pur e alcohol) Housing Stability Answer Date Recorded What is your housing situation today? I do not have housing (Staying with others, in a hotel, in a custodial, living outside on the street, on a [...] AM EDT documented as of this encounter Miscellaneous Notes * Telephone Encounter - Flavia Bliss RN - 11/09/2023 10:51 AM EDT Appt already canceled. Will FYI to PCP * Telephone Encounter - Charisma Camilo - 11/08/2023 11:17 AM EDT Tc from pt calling in to inform is currently at rehabilitation in [facility]. States had went to [facility] on 10/23/23 due to a stoke and then was transferred to rehabilitation on 10/27 and is unsure when she will be getting out so pt requested for 11/13/23 appt to be canceled. documented in this encounter Plan of Treatment Upcoming Encounters Date Type Department Care Team (Late st Contact Info) Description 01/09/2025 9:30 AM EST Office Visit [facility] [address] [place] [address] Gisel Watts, WILMAN [address] [place] [address] documented as of this encounter Visit Diagnoses Not on filedocumented in this encounter Care Teams Warp Spooler Relationship Specialty Start Date End Date Marybeth Cody ANP [address] [place] [address] PCP - General Family Medicine 04/04/22 documented as of this encounter
--- OUTSIDE RECORDS SUMMARY | 2024-10-17 19:00 | XMS_ITS | Encounter Summary ---
Author Organization [employer] Address [address] [facility] 7t [place] [address] Care Team Providers Care Battery Assembler Name Role Phone Marybeth Cody Primary Care Provider [phone] Encounter Details Date Type Department Care Team ([facility] st Contact Info) Description 10/17/2024 Orders Only [facility] [address] [place], [place] [phone] Marybeth Cody ANP [address] [place], [place] [phone] Social History Tobacco Use Types Packs/Day Years [...] Description 01/09/2025 9:30 AM EST Office Visit [facility] OPTOMETRY [address] [place], [place] [phone] Gisel Watts, OD [address] [place] [address] documented as of this encounter Procedures Procedure Name Priority Date/Time Associated Diagnosis Comments ALBUMIN, RANDOM URINE W/CREATININE Routine 10/17/2024 11:30 AM EDT documented in this encounter Results * Albumin, Random Urine W/Creatinine (10/17/2024 11:30 AM EDT) Creatinine, Urine 39.99 mg/dL [facility] Microalbumin Urine 7.0 mg/L [facility] Microalbum Creatinine Ratio Ur 17.5 <30 ug/mg cr [facility] Comment:Albumin/Creatinine R atio Reference Ranges: Normal: < 30 ug/mg creatinine Microalbuminuria: 30 - 300 ug/mg creatinineClinical Albuminuria: > 300 ug/mg creatinine 10/17/2024 11:3 0 AM EDT 10/17/2024 5:20 PM EDT us Marybeth GREEN LAB URINE ORDERABLES Final Resul t [facility] [address] [place] [address] [phone] documented in this encounter Visit Diagnoses Not on filedocumented in this encounter Additional Health Concerns Assessment Noted Time PHQ-9 Depression Total Score: 18 07/22/ 025 3:11 PM EDT documented as of this encounter Care Teams Battery Assembler Relationship Specialty Start Date End Date Marybeth Cody ANP [address] [place] [address] PCP - General Family Medicine 04/04/22 documented as of this encounter
--- OUTSIDE RECORDS SUMMARY | 2024-10-17 19:00 | XMS_ITS | Encounter Summary ---
Author Organization [employer] Address [address] [facility] [address] [place] [address] Care Team Providers Care Teachers Aide Name Role Phone Marybeth Cody Primary Care Provider Reason for Visit * Reason Onset Date Comments chart prep 10/16/2024 Encounter Details Date Type Department Care Team ([facility] st Contact Info) Description 10/16/2024 Telephone [facility] [address] [place], [place] [phone] Marybeth Cody ANP [address] [place], [place] [phone] chart prep Social History Tobacco Use Types Packs/Day Years [...] encounter Miscellaneous Notes * Telephone Encounter - Shayan Walker MA - 10/16/2024 9:34 AM EDT Chart Prep Labs: not done Images: done Referrals: not applicable Vaccines due: Covid, Flu, PCV20, and Hep B Screenings: colonoscopy, foot exam, and STI screening Overdue care gaps: Not applicable documented in this encounter Plan of Treatment Upcoming Encounters Date Type Department Care Team (Late st Contact Info) Description 01/09/2025 9:30 AM EST Office Visit [facility] OPTOMETRY [address] [place] [address] Gisel Watts OD [address] [place] [address] documented as of this encounter Visit Diagnoses Not on filedocumented in this encounter Additional Health Concerns Assessment Noted Time PHQ-9 Depression Total Score: 18 025 3:11 PM EDT documented as of this encounter Care Teams Teachers Aide Relationship Specialty Start Date End Date Marybeth Cody ANP [address] [place] [address] PCP - General Family Medicine 04/04/22 documented as of this encounter
--- OUTSIDE RECORDS SUMMARY | 2024-10-17 19:00 | XMS_ITS | Encounter Summary ---
Author Organization [employer] Address [address] [facility] [address] [place] [address] Care Team Providers Care Mexican Food Maker Hand Name Role Phone Marybeth Cody Primary Care Provider [phone] Reason for Visit * Reason Onset Date Comments Appointment Request 05/01/2024 Encounter Details Date Type Department Care Team ([facility] st Contact Info) Description 05/01/2024 Telephone [facility] [address] [place], [place] [phone] Marybeth Cody ANP [address] [place], [place] [phone] Appointment Request Social History Tobacco Use Types Packs/Day Years Used Date Smoking Tobacco: Never Smokeless Tobacco: Never Alcohol Use Standard Drinks/Week Comments Not Currently 0 (1 standard drink = 0.6 oz pur e alcohol) Housing Stability Answer Date Recorded What is your housing situation today? I do not have housing (Staying with others, in a hotel, in a fpc, living outside on the street, on a [...] encounter Miscellaneous Notes * Telephone Encounter - Aristides Palomares - 05/01/2024 10:54 AM EDT Tc from pt requesting to R/s Appt from 01/22/24. Employment Agency Manager Offered Pt appt for 06/27/24 but states thatit was too far away and wants a closer appt. Contact pt at [phone] documented in this encounter Plan of Treatment Upcoming Encounters Date Type Department Care Team (Late st Contact Info) Description 01/09/2025 9:30 AM EST Office Visit [facility] OPTOMET[facility] [address] [place] [address] Gisel Watts OD [address] [place] [address] documented as of this encounter Visit Diagnoses Not on filedocumented in this encounter Care Teams Mexican Food Maker Hand Relationship Specialty Start Date End Date Marybeth Cody ANP [address] [place] [address] PCP - General Family Medicine 04/04/22 documented as of this encounter
--- OUTSIDE RECORDS SUMMARY | 2024-10-17 19:00 | XMS_ITS | Encounter Summary ---
Author Organization [employer] [facility] Address [address] [facility] 7t [place] [address] Care Team Providers Care Security Assessor Name Role Phone Marybeth Cody Primary Care Provider [phone] Reason for Visit * Reason Comments Med Refill Encounter Details Date Type Department Care Team (Late st Contact Info) Description 10/17/2022 Refill [facility] [address] [place] [address] Marybeth Cody ANP [address] [place] [address] Social History Tobacco Use Types Packs/Day Years Used Date Smoking Tobacco: Never Smokeless Tobacco: Never Alcohol Use Standard Drinks/Week Comments Not Currently 0 (1 standard drink = 0.6 oz pur e alcohol) Depression Answer Date Recorded Patient Health Questionnaire-2 Score 0 04/04/2022 Comments Unknown Sex and Gender Information Value [...] Description 01/09/2025 9:30 AM EST Office Visit [facility] OPTOMET[facility] [address] [place], [place] [phone] Gisel Watts OD [address] [place] [address] documented as of this encounter Visit Diagnoses Not on filedocumented in this encounter Care Teams Security Assessor Relationship Specialty Start Date End Date Marybeth Cody ANP [address] [place] [address] PCP - General Family Medicine 04/04/22 documented as of this encounter
--- OUTSIDE RECORDS SUMMARY | 2024-10-17 19:00 | XMS_ITS | Clinical Summary ---
Author Organization [employer] Address [address] [facility] 7[address] [place] [address] Care Team Providers Care Magnetic Resonance Technologist Name Role Phone Jose Juan Durbin PETER Primary Care Provider [phone] Allergies No known active allergies Medications * This document contains information received from the source organization and may not represent a complete record from that organization. TRUEplus Lancets 33G miscIndications:T ype 2 diabetes mellitus without complication, without long-term current use of insulin ([facility]) TEST BLOOD SUGAR FOUR TIMES DAILY 100 each 11 022 Active glucose (Glutose) 40 % gel oral gelIndications:Ty pe 2 diabetes mellitus with hyperlipidemia ([facility]/HCC) ([facility]) Take 15 g by mouth if needed for low blood sugar. 31 g 3 023 Active docusate sodium (Colace) 100 MG capsule Take 1 capsule by mouth in the morning and 1 capsule in the evening. 024 Active ondansetron ODT (Zofran-ODT) 4 MG disintegrating tablet DISSOLVE 1 TABLET BY MOUTH EVERY 6 HOURS NEEDED FOR NAUSEA AND VOMITING FOR 3 DAYS Active benzocaine (Orajel) 10 % mucosal gel Use in the mouth or throat every 6 (six) hours if needed for mucositis. 5.3 g 024 Active acetaminophen (Tylenol) 325 MG tablet Take 3 tablets (975 mg) by mouth every 6 (six) hours if needed for mild pain. 90 tablet Active LORazepam (Ativan) 0.5 MG tabletIndications :Anxiety Take 1 tablet (0.5 mg) by mouth every 12 (twelve) hours if needed for anxiety for up to 14 days. 28 tablet 024 Active atorvastatin (Lipitor) 40 MG tablet Take 1 tablet (40 mg) by mouth Once per day. 90 tablet 024 Active metFORMIN (Glucophage) 1000 MG tablet TAKE 1 TABLET BY MOUTH TWICE DAILY IN THE MORNING AND IN THE EVENING WITH MEALS 180 tablet 3 025 Active olmesartan-hydroC HLOROthiazide (Benicar HCT) 40-12.5 MG tabletIndications :Essential hypertension Take 1 tablet by mouth Once per day. 90 tablet 1 025 2025 Active aspirin 81 MG EC tabletIndications :Cerebrovascular accident (CVA) due to occlusion of cerebral artery ([facility]),Type 2 diabetes mellitus with hyperlipidemia ([facility]/HCC) ([facility]) Take 1 tablet (81 mg) by mouth Once per day. 90 tablet 3 025 2025 Active cholecalciferol 1000 units capsuleIndication s:Hyperparathyroi dism ([facility]),Vitamin D deficiency TAKE 1 CAPSULE BY MOUTH EVERY DAY 90 capsule 3 025 Active cyanocobalamin (Vitamin B-12) 1000 MCG/ML injectionIndicati ons:B12 deficiency Inject 1000mcg IM twice week one, then once weekly for weeks 2-6 6 mL 025 Active Cyanocobalamin 1000 MCG sublingual tabletIndications :B12 deficiency Place 1 tablet under the tongue Once per day. Do not start before September 02, 2024. 90 tablet 1 025 Active glucose blood (FREESTYLE LITE) test stripIndications: Type 2 diabetes mellitus without complication, without long-term current use of insulin ([facility]) USE TO TEST BLOOD SUGAR FOUR TIMES DAILY 100 each 11 025 Active clopidogrel (Plavix) 75 MG tabletIndications :Cerebrovascular accident (CVA), unspecified mechanism ([facility]) TAKE 1 TABLET BY MOUTH EVERY DAY 90 tablet 025 Active famotidine (Pepcid) 20 MG tabletIndications :Gastroesophageal reflux disease, unspecified whether esophagitis present TAKE 1 TABLET BY MOUTH EVERY DAY NEEDED HEARTBURN 90 tablet 025 Active carboxymethylcell ulose (Refresh Tears) 0.5 % ophthalmic solution Administer 1 drop into both eyes if needed in the morning, at noon, and at bedtime for dry eyes. 15 mL 11 025 2025 Active glucose blood (FREESTYLE LITE) test stripIndications: Type 2 diabetes mellitus without complication, without long-term current use of insulin ([facility]) Use 1 by To Skin route 4 times every day 100 each 11 024 2024 Discontinued(R eorder (will not trigger notification to Pharmacy)) clopidogrel (Plavix) 75 MG tabletIndications :Cerebrovascular accident (CVA), unspecified mechanism ([facility]/HCC) 1 tablet once daily 90 tablet 025 2024 Discontinued famotidine (Pepcid) 20 MG tabletIndications :Gastroesophageal reflux disease, unspecified whether esophagitis present Take 1 tablet (20 mg) by mouth Once daily as needed for heartburn. 90 tablet 025 2024 Discontinued Active Problems Problem Noted Date Diagnosed Date Acute bacterial conjunctivitis of left eye 08/13 Hemiparesis affecting left s jaime as late effect of cerebrovascular accident 07/22/2024 History of stroke with current residual effects 07/22/2024 B12 deficiency 07/22/2024 MDD (major depressive disorder) 07/22/2024 Assessment & Plan (07/22/2024 3:55 PM EDT): During [facility] Consult Tamiko presenting with depressed mood, Tearful, crying spells , hopelessness, irritable mood, loss of interests/pleasure , change in appetite or weight reduce appetite, changes in sleep difficulty falling asleep and difficulty staying asleep , psychomotor retardation, fatigue/loss of energy, worthlessness, inappropriate/excessive guilt , difficulty concentrating, indecisiveness; for a period of 6-12 mo, for most or all symptoms in the context of illness or family illness. Tamiko was emotionally overwhelmed and reports she suffered a stroke last October. Her medical condition have worsened since then which is leading to a severe depression. The passing of her has also contributed to the presenting sxs. Pt receives positive support from her family and friend. Pt states her interpersonal and occupational area are being affected by her clinical depression. Tamiko's sense of adria and spirituality are strong and main values. Cerebrovascular accident (CV A) due to occlusion [...] come w pt for assistance -Requested today temporary staff accountant to help pt getting ROBOTICS TESTING TECHNICIAN services -Flu and Covid 19 vaccine offered today but refused , advised to consider and if change her mind to go to vaccine clinic -continue care w cards --Cards Apt for 12/07/2023 ,to complete cardiac eval -advised to continue w neurologist in regards recs for dual antiplatelet -will complete 3 months in mid 01/2024 --I called today neurologist office--Md Romy Sargent at [phone]-- to confirm plan and ASA dose but not able to reach left my # for a call back w front end alignment specialist staff -continue care w PCP in next [...] Type 2 diabetes mellitus with hyperlipidemia (CM S/HCC) 04/04/2022 Overview (08/14/2023): Lab Results Component Value [...] microalbuminuria due to type 2 diabetes mellitus ([facility]) 12/22/2020 Overview (08/14/2023): not on [...] per week and FU with PCP. Encounters * This document contains information received from the source organization and may not represent a complete record from that organization. Date Type Department Care Team Description 10/17/2024 10:00 AM EDT Office Visit [facility] [address] [place] [address] Jose Juan Durbin ANP Screening for colon cancer (Primary Dx); Type 2 diabetes mellitus with hyperlipidemia (CMS/HCC) (CMS/HCC) 10/17/2024 Orders Only [facility] [address] [place] [address] Jose Juan Durbin ANP 10/17/2024 Travel 10/16/2024 Telephone [facility] [address] [place] [address] Jose Juan Durbin ANP chart prep 10/10/2024 9:00 AM EDT Office Visit [facility] [address] [place] [address] Gisel Watts, WILMAN Type 2 diabetes mellitus without ophthalmic manifestations (CMS/HCC) (Primary Dx); Hypertensive retinopathy of both eyes; History of CVA (cerebrovascular accident); Dry eyes; Hyperopia of both eyes with astigmatism and presbyopia 10/10/2024 Travel 10/03/2024 [facility]ill [facility] [address] [facility] [place] [address] Jose Juan Durbin ANP Cerebrovascular accident (CVA), unspecified mechanism ([facility]); Gastroesophageal reflux disease, unspecified whether esophagitis present 09/24/2024 Refill [facility] [address] [place] [address] Jose Juan Durbin ANP Type 2 diabetes mellitus without complication, without long-term current use of insulin (CMS/[facility]) 09/18/2024 Refill [facility] [address] [facility] [place] [address] Jose Juan Durbin ANP 09/05/2024 2:30 PM EDT Clinical Support [address] [address] Flavia Bliss, RN B12 deficiency 09/05/2024 Orders Only [address] [address] Britta Shin, MARANDA B12 deficiency 09/05/2024 Travel 09/03/2024 Orders Only [address] [address] Jose Juan Durbin ANP 08/29/2024 1:30 PM EDT Clinical Support [address] [address] Britta Shin, RN B12 deficiency 08/29/2024 Travel 08/22/2024 1:00 PM EDT Clinical Support [address] [address] Petrona Mendoza, MARANDA B12 deficiency 08/22/2024 Travel 08/15/2024 1:30 PM EDT Clinical Support [address] [address] Flavia Bliss, MARANDA B12 deficiency 08/15/2024 Travel 08/13/2024 10:00 AM EDT Office Visit [facility] [address] [place] [id number] Nydia Rhodes MD Acute bacterial conjunctivitis of left eye (Primary Dx) 08/06/2024 2:30 PM EDT Clinical Support [address] [place] [address] Petrona Mendoza RN B12 deficiency 08/06/2024 Travel 07/30/2024 2:30 PM EDT Clinical Support [facility] [place] [address] Petrona Mendoza RN B12 deficiency 07/30/2024 Travel 07/23/2024 2:30 PM EDT Clinical Support [facility] [place] [address] Petrona Mendoza RN B12 deficiency 07/23/2024 Travel 07/23/2024 Telephone [facility] [place] [address] Jose Juan Durbin ANP 07/22/2024 11:30 AM EDT Office Visit [facility] [place] [address] Jose Juan Durbin ANP B12 deficiency (Primary Dx); Hyperparathyroidism (CMS/HCC); Type 2 diabetes mellitus with hyperlipidemia (CMS/HCC) ([facility]); Essential hypertension; Vitamin D deficiency; Hemiparesis affecting left side as late effect of cerebrovascular accident ([facility]/HCC); History of stroke with current residual effects; Depression, unspecified depression type 07/22/2024 Travel from Last 3 Months Immunizations Immunization Administration Dates Next Due Influenza injectable quadriv alent preservative free 11/28/2022,12/13/2021,11/11/2020,2019,04/02/2018 Influenza, IIV3, injectable 12/19/2023 Moderna Covid-19 Vaccine 12+ 05/05/2021,06/03/19 21,05/05/2020 Pfizer Covid-19 Vaccine 12+ Bivalent 12/13/2021 Pneumococcal Conjugate PCV 20 10/17/2024 Td (adult), 5 Lf tetanus tox oid, preservative free, adsorbed 04/04/2022 Tdap 10/17/2024 Zoster, Recombinant 12/26/2022,10/20/2022 Social History Tobacco Use [...] 20 10/17/2024 11:01 AM EDT Oxygen Saturation 98% 08/13/2024 9:53 AM EDT Inhaled Oxygen Concentration - - Weight 59.5 kg (131 lb 2 oz) 10/17/2024 11:01 AM EDT Height 154.9 cm (5' 1 ) 10/17/2024 11:01 AM EDT Body Mass Index 24.78 10/17/2024 11:01 AM EDT Plan of Treatment Upcoming Encounters Date Type Department Care Team (Late st Contact Info) Description 01/09/2025 9:30 AM EST Office Visit [facility] [address] [place] [address] Gisel Watts, OD [address] [place] [address] Health Maintenance Due Date Last Done Comments CT Colonography 1966 Colonoscopy 1966 Colorectal Cancer Screening 1966 FIT DNA/Cologuard 1966 FIT 1966 FOBT 1966 HIV Screening 1966 Sigmoidoscopy 1966 Diabetes: Foot Exam 1976 Hepatitis C Screening 1984 Hepatitis B Vaccines (1 of 3 - 19+ 3-dose series) 1985 COVID-19 Vaccine ( season) 2024 12/13/2021, 05/05/2021, 06/02/2020, Additional history exists Influenza Vaccine (#1) 2024 , 11/28/2022, 12/13/2021, Additional history exists Diabetes: Hemoglobin A1C 01/16/2025 025, 06/27/2024, 08/14/2023, Additional history exists Depression Monitoring 01/21/2025 07/22/2024, 025 Alcohol/Substance Use Screening 06/27/2025 06/27/2024 Disability Screening 06/27/2025 06/27/2024 Lipid Panel 07/16/2025 07/16/2024, 11/06, 08/18/2021, Additional history exists SDOH Screening 07/22/2025 07/22/2024 Mammogram 09/03/2025 09/03/2024, 05/07, 05/16/2022, Additional history exists Tobacco Screening 10/10/2025 10/10/2024 Eye Exam 10/10/2026 10/10/2024, 05/2024, 10/10/2024, Additional history exists DTaP/Tdap/Td Vaccines (2 - Td or Tdap) 10/17/2034 10/17/2024, 04/04/2022 RSV Patients and Patients Aged 60 years or older (1 - 1-dose 75+ series) 2041 Cervical Cancer Screening Discontinued HPV/Cotest Discontinued 12/05/2018 Zoster Vaccines Completed 12/26/2022, 10/20/2022 Pneumococcal Vaccine: 50+ Years Completed 10/17/2024 HIB Vaccines Aged Out No longer eligi [...] URINE W/CREATININE Routine 10/17/2024 11:30 AM EDT POCT GLYCATED HEMOGLOBIN, TOTAL Routine 10/17/2024 11:03 AM EDT Type 2 diabetes mellitus with hyperlipidemia (CMS/HCC) ([facility]) POCT GLUCOSE Routine 10/17/2024 11:02 AM EDT Type 2 diabetes mellitus with hyperlipidemia (CMS/HCC) (CMS/[facility]) OCT, OPTIC NERVE - OU - BOTH EYES Routine 10/10/2024 10:44 AM EDT Hypertensive retinopathy of both eyes BI MAMMOGRAM SCREENING TOMOSYNTHESIS BILATERAL Routine 09/03/2024 11:20 AM EDT LIPID PANEL, STANDARD Routine 07/16/2024 8:43 AM EDT Type 2 diabetes mellitus with hyperlipidemia (CMS/HCC) (CMS/HCC) ZZZ HISTORICAL HPV MRNA E6/E7 Routine 12/05/2018 10:31 AM EDT from Last 3 Months or Most Recently Relevant to Health Maintenance Results * Albumin, Random Urine W/Creatinine (10/17/2024 11:30 AM EDT) Creatinine, Urine 39.99 mg/dL [facility] Microalbumin Urine 7.0 mg/L [facility] Microalbum Creatinine Ratio Ur 17.5 <30 ug/mg cr [facility] Comment:Albumin/Creatinine R atio Reference Ranges: Normal: < 30 ug/mg creatinine Microalbuminuria: 30 - 300 ug/mg creatinineClinical Albuminuria: > 300 ug/mg creatinine 10/17/2024 11:3 0 AM EDT 10/17/2024 5:20 PM EDT us Jose Juan Durbin ANP LAB URINE ORDERABLES Final Resul t [facility] [address] [place] [phone] * (ABNORMAL) POCT Hgb A1c (10/17/2024 11:03 AM EDT) Hemoglobin A1C 6.6(A) 4.0 - 5.7 % QC Media Lot # [id number] Lot# Expiration Date [id number], Blood 10/17/2024 11:0 3 AM EDT us Jose Juan Durbin ANP POINT OF CARE TEST ENTER/EDIT OR DERABLES Final Result * POCT Glucose (10/17/2024 11:02 AM EDT) Glucose Blood, POC 144 60 - 200 mg/dL QC Media Lot # [id number] Lot# Expiration Date [id number] Blood Capillary blood specimen / Unknown 10/17/2024 11:02 AM EDT Jose Juan Durbin ANP POINT OF CARE TEST ENTER/EDIT OR DERABLES Final Result * OCT, Optic Nerve - OU - Both Eyes (10/10/2024 10:44 AM EDT) Narrative Gisel Watts, OD - 10/10/2024 10:44 AM EDT OCT OPTIC NERVE INTERPRETATION Optical Coherence Tomography Interpretation Report Test Details: Baseline OCT to document hypertensive retinopathy both eyes (OU) and disc hemorrhage OS Measurements: OD OS C/D Horizontal 0.37 0.41 C/D Vertical 0.33 0.40 Disc area 1.93 mm 2 1.85 mm 2 RNFL Average 97 microns 99 microns Test findings: OD: Hypertensive retinopathy with arterial attenuation and no optic disc involvement OS: Hypertensive retinopathy with arterial attentuation and superior temporal splinter heme on disc Impression and Plan: Hypertensive retinopathy both eyes (OU) in a patient with optic disc hemorrhage left eye (OS) and history of hypertension and CVA 1 year ago. Recommend continue to monitor with PCP as indicated, maintain good control of blood pressure and blood glucose levels. Will follow up with [facility] in 3 months or sooner if any changes in vision or visual disturbance occurs. Patient states her understanding of findings and management plan. Gisel Paredesgeovanni OD OPHTH TOMOGRAPHY Final Result * BI Mammogram Screening Tomosynthesis Bilateral (09/03/2024 11:20 AM EDT) Anatomical Region Laterality Modality Breast Bilateral Mammography 09/03/2024 11:2 0 AM EDT Narrative 09/13/2024 10:05 AM EDT [facility] [address] [place] [address] Mammography Report Signed Patient: Tamiko Rehman MR#: [id number] : 1965 Acct:[id number] Age/Sex: 59 / F ADM Date: 09/03/24 Loc: HO.MAMMO Attending Dr: Jose Juan Durbin NP Ordering Physician: JOSE JUAN DURBIN NP Results: 1Negative Date of Service: 09/03/24 Follow Up: 1 Year From Orig inal Mammogram Procedure(s): MM tomosynthesis screening BI Accession Number(s): [id number] cc: JOSE JUAN DURBIN NP EXAMINATION: MM SCREENING DIGITAL BREAST TOMOSYNTHESIS, BILATERAL CLINICAL INFORMATION: Screening. Asymptomatic. COMPARISON: Mammography: Comparison is made with available priors TECHNIQUE: Digital breast mammography with tomosynthesis is performed in both the craniocaudal and mediolateral oblique views along with computer-aided detection (CAD). FINDINGS: There are scattered areas of fibroglandular [...] target due date for their next mammogram. Electronically signed by: Meg Hitchcock DO 09/13/2024 10:02 AM EDT Dictated By: Meg Hitchcock DO Signed By: <Electronically signed by Meg Hitchcock DO in OV> 09/13/24 1002 DD/ 1120 TD/TT: 09/03/24 1141 Meter Engineer: Procedure Note Donotuseinterpreter, Image - 09/13/2024 [facility] [address] [place] [address] Mammography Report Signed Patient: Tamiko Remhan EMR#: [id number] : 1965Acct:[id number] Age/Sex: 59 / FADM Date: 09/03/24 Loc: HO.MAMMO Attending Dr: Jose Juan Durbin NUTRITION SERVICES MANAGER Ordering Physician: JOSE JUAN DURBIN NPResults: 1Negative Date of Service: 09/03/24Follow Up: 1 Year From Orig inal Mammogram Procedure(s): MM tomosynthesis screening BI Accession Number(s): [id number] cc: JOSE JUAN DURBIN NP EXAMINATION: MM SCREENING DIGITAL BREAST TOMOSYNTHESIS, BILATERAL CLINICAL INFORMATION: Screening. Asymptomatic. COMPARISON: Mammography: Comparison is made with available priors TECHNIQUE: Digital breast mammography with tomosynthesis is performed in both the craniocaudal and mediolateral oblique views along with computer-aided detection (CAD). FINDINGS: There are scattered areas of fibroglandular [...] target due date for their next mammogram. Electronically signed by: Meg Hitchcock DO 09/13/2024 10:02 AM EDT RP Dictated By: Meg Hitchcock DO Signed By: <Electronically signed by Meg Hitchcock DO in OV> 09/13/24 1002 DD/ 1120 TD/TT: 09/03/24 1141 Meter Engineer: Jose Juan Durbin [facility] IM BI PROCEDURES Final Result * (ABNORMAL) Lipid Panel, Standard (07/16/2024 8:43 AM EDT) Triglycerides 122 <150 mg/dL [facility] Comment:Desirable Triglyceri de: less than 150 mg/dLBorderline High Triglyceride 150-199 mg/dLHigh Triglyceride: 200-499 mg/dLVery High Triglyceride: greater than or equal to 5OO mg/dL Cholesterol 131 <200 mg/dL [facility] Comment:Desirable Cholestero l: less than 200 mg/dLBorderline High Cholesterol: 200-239 mg/dLHigh Cholesterol: greater than 239 mg/dL LDL Cholesterol Calculated 73 <100 mg/dL [facility] Comment:Desirable LDL: less than 100 mg/dLNear Optimal/Above Optimal LDL: 110- 129 mg/dLBorderline High LDL: 130-159 mg/dLHigh LDL: 160-189 mg/dLVery High LDL: greater than or equal to 190 mg/dL HDL Cholesterol 34(L) >40 mg/dL [facility] Comment:Desirable HDL: great er than 40 mg/dL Note: This HDL assay may give artificially low results in patients with liver disease. Blood Venous blood specimen / Unknown 07/16/2024 8:43 AM EDT 07/16/2024 11:19 AM EDT Jose Juan Durbin [facility] BLOOD ORDERABLES Final Resul t [facility] [address] [place] [phone] * HPV mRNA E6/E7 (12/05/2018 10:31 AM EDT) HPV mRNA E6/E7 Not Detected NOT DETECTED [facility] Comment: This test was performed using the APTIMA(R) HPV Assay ([employer] This assay detects E6/E7 viral messenger RNA (mRNA) from 14 high-risk HPV types (16,18,31,33,35,39,45,51, 52,56,58,59,66,68). For additional information please refer to: http://education.Equiphon/faq/NLH594i2 (This link is being provided for informational/ educational purposes only.) The analytical performance characteristics of this assay have been determined by [employer] [place], [place]. The modifications have not been cleared or approved by the FDA. This assay has been validated pursuant to the CLIA regulations and is used for clinical purposes. Test Performed by [facility], [employer] [facility], [address] [place] [address] Juan José Mcgowan M.D., Ph.D., Director of Laboratories , CLIA [id number] Please note: Effective 10/19/2015, HPV testing will be performed using [employer] APTIMA test which targets mRNA. Detecting mRNA instead of DNA, as in older methods, offers significant improvements in specificity. 12/05/2018 10:3 1 AM EDT Aadli Roldan CNM HISTORICAL/NON ORDERABLE LABS Final Result [facility] [address] from Last 3 Months or Most Recently Relevant to Health Maintenance Insurance [facility] C3 Care Teams Magnetic Resonance Technologist Relationship Specialty Start Date End Date Jose Juan Durbin ANP [address] [place] [address] PCP - General Family Medicine 04/04/22
--- OUTSIDE RECORDS SUMMARY | 2024-10-17 19:00 | XMS_ITS | Encounter Summary ---
Author Organization [employer] Address [address] [facility] [address] [place] [address] Care Team Providers Care Engine Repairer Name Role Phone Marybeth Cody Primary Care Provider [phone] Reason for Visit * Reason Onset Date Comments Durable Medical Equipment 11/30/2023 Encounter Details Date Type Department Care Team ([facility] st Contact Info) Description 11/30/2023 Telephone [facility] [address] [place], [place] [phone] Marybeth Cody ANP [address] [place] [address] Durable Medical Equipment Social History Tobacco Use Types Packs/Day Years Used Date Smoking Tobacco: Never Smokeless Tobacco: Never Alcohol Use Standard Drinks/Week Comments Not Currently 0 (1 standard drink = 0.6 oz pur e alcohol) Housing Stability Answer Date Recorded What is your housing situation today? I do not have housing (Staying with others, in a hotel, in a chcf, living outside on the street, on a [...] encounter Miscellaneous Notes * Telephone Encounter - Sal Woods - 11/30/2023 1:56 PM EDT [facility] from [facility] with [facility] calling in regards to DME they need faxed over. DME: transport wheelchair shower transfer bench (2) 6 inch grab bar. Bed side commode If any questions you can contact Ashlyn at [phone]. documented in this encounter Plan of Treatment Upcoming Encounters Date Type Department Care Team (Late st Contact Info) Description 01/09/2025 9:30 AM EST Office Visit [facility] [address] [place] [address] Gisel Watts OD [address] [place] [address] documented as of this encounter Visit Diagnoses Not on filedocumented in this encounter Care Teams Engine Repairer Relationship Specialty Start Date End Date Marybeth Cody ANP [address] [place] [address] PCP - General Family Medicine 04/04/22 documented as of this encounter
--- OUTSIDE RECORDS SUMMARY | 2024-10-17 19:00 | XMS_ITS | Encounter Summary ---
Author Organization [employer] Address 75 [facility] 7t [place] [address] Care Team Providers Care Or First Assist Registered Nurse Name Role Phone Marybeth Cody Primary Care Provider [phone] Reason for Visit * Reason Comments Med Refill Encounter Details Date Type Department Care Team (Late st Contact Info) Description 09/18/2024 Refill [facility] [address] [place], [place] [phone] Marybeth Cody ANP [address] [place], [place] [phone] Social History Tobacco Use Types Packs/Day Years [...] Description 01/09/2025 9:30 AM EST Office Visit [facility] OPTOMETRY [address] [place] [address] Gisel Watts OD [address] [place] [address] documented as of this encounter Visit Diagnoses Not on filedocumented in this encounter Additional Health Concerns Assessment Noted Time PHQ-9 Depression Total Score: 18 025 3:11 PM EDT documented as of this encounter Care Teams Or First Assist Registered Nurse Relationship Specialty Start Date End Date Marybeth Cody ANP [address] [place] [address] PCP - General Family Medicine 04/04/22 documented as of this encounter
== END 2024-10-17 17:20 | disposition home or self-care (01) ==
LOC: HO.HHCLNP 17:19
PROVIDERS: Visit Provider Nurse Practitioner Primary Care
DX: E11.69 Type 2 diabetes mellitus with other specified complication (principal); E78.5 Hyperlipidemia, unspecified
CPT/HCPCS: 82043; 82570

== ENCOUNTER 2024-10-24 08:21 | Outpatient (REF) | payer MEDICAID, SELFPAY ==
--- OUTSIDE RECORDS SUMMARY | 2024-10-24 09:22 | XMS_ITS | Encounter Summary ---
Author Organization [employer] Address [address] [facility] [address] 7t [place] [address] Care Team Providers Care Body And Fender Worker Name Role Phone Marybeth Cody Primary Care Provider [phone] Encounter Details Date Type Department Care Team ([facility] st Contact Info) Description 10/18/2024 Results Follow-Up [facility] MEDICINE 230 [place], [place] [phone] Marybeth Cody, ANP 230 [place], [place] [phone] Albumin, Random Urine W/Creatinine Social History Tobacco Use Types Packs/Day Years [...] Description 01/09/2025 9:30 AM EST Office Visit [facility] OPTOMETRY [address] [place] [address] Gisel Watts OD [address] [place] [address] documented as of this encounter Visit Diagnoses Not on filedocumented in this encounter Additional Health Concerns Assessment Noted Time PHQ-9 Depression Total Score: 18 025 3:11 PM EDT documented as of this encounter Care Teams Body And Fender Worker Relationship Specialty Start Date End Date Marybeth Cody ANP 230 [place] [address] PCP - General Family Medicine 04/04/22 documented as of this encounter
--- OUTSIDE RECORDS SUMMARY | 2024-10-24 09:22 | XMS_ITS | Clinical Summary ---
Author Organization [employer] Address [address] [facility] [address]t [place] [address] Care Team Providers Care Psychiatric Nurse Name Role Phone Jose Juan Durbin PETER Primary Care Provider [phone] Allergies No known active allergies Medications * This document contains information received from the source organization and may not represent a complete record from that organization. TRUEplus Lancets 33G miscIndications:T ype 2 diabetes mellitus without complication, without long-term current use of insulin ([facility]) TEST BLOOD SUGAR FOUR TIMES DAILY 100 each 11 01/27/20 22 Active glucose (Glutose) 40 % gel oral gelIndications:Ty pe 2 diabetes mellitus with hyperlipidemia ([facility]/HCC) ([facility]) Take 15 g by mouth if needed for low blood sugar. 31 g 3 05/28/19 23 Active docusate sodium (Colace) 100 MG capsule [...] MEALS 180 tablet 3 03/05/19 25 Active olmesartan-hydroC HLOROthiazide (Benicar HCT) 40-12.5 MG tabletIndications :Essential hypertension Take 1 tablet by mouth Once per day. 90 tablet 1 06/28/19 25 2025 Active aspirin 81 MG EC tabletIndications :Cerebrovascular accident (CVA) due to occlusion of cerebral artery ([facility]),Type 2 diabetes mellitus with hyperlipidemia ([facility]/HCC) ([facility]) Take 1 tablet (81 mg) by mouth Once per day. 90 tablet 3 07/12/19 25 2025 Active cholecalciferol 1000 units capsuleIndication s:Hyperparathyroi dism ([facility]),Vitamin D deficiency TAKE 1 CAPSULE BY MOUTH EVERY DAY 90 capsule 3 07/23/19 25 Active cyanocobalamin (Vitamin B-12) 1000 MCG/ML injectionIndicati ons:B12 deficiency Inject 1000mcg IM twice week one, then once weekly for weeks 2-6 6 mL 07/23/19 25 Active Cyanocobalamin 1000 MCG sublingual tabletIndications :B12 deficiency Place 1 tablet under the tongue Once per day. Do not start before September 02, 2024. 90 tablet 1 09/03/19 25 Active glucose blood (FREESTYLE LITE) test stripIndications: Type 2 diabetes mellitus without complication, without long-term current use of insulin ([facility]) USE TO TEST BLOOD SUGAR FOUR TIMES DAILY 100 each 11 09/25/19 25 Active clopidogrel (Plavix) 75 MG tabletIndications :Cerebrovascular accident (CVA), unspecified mechanism ([facility]) TAKE 1 TABLET BY MOUTH EVERY DAY 90 tablet 10/04/19 25 Active famotidine (Pepcid) 20 MG tabletIndications :Gastroesophageal reflux disease, unspecified whether esophagitis present TAKE 1 TABLET BY MOUTH EVERY DAY NEEDED HEARTBURN 90 tablet 10/04/19 25 Active carboxymethylcell ulose (Refresh Tears) 0.5 % ophthalmic solution Administer 1 drop into both eyes if needed in the morning, at noon, and at bedtime for dry eyes. 15 mL 11 10/11/19 25 2025 Active clopidogrel (Plavix) 75 MG tabletIndications :Cerebrovascular accident (CVA), unspecified mechanism (CMS/HCC) 1 tablet once daily 90 tablet 06/28/19 25 2024 Discontinued famotidine (Pepcid) 20 MG tabletIndications :Gastroesophageal reflux disease, unspecified whether esophagitis present Take 1 tablet (20 mg) by mouth Once daily as needed for heartburn. 90 tablet 06/28/19 25 2024 Discontinued Active Problems Problem Noted Date [...] w pt for assistance -Requested today staff anesthesiologist to help pt getting NATIONAL SALES MANAGER services -Flu and Covid 19 vaccine offered today but refused , advised to consider and if change her mind to go to vaccine clinic -continue care w cards --Cards Apt for 12/07/2023 ,to complete cardiac eval -advised to continue w neurologist in regards recs for dual antiplatelet -will complete 3 months in mid 01/2024 --I called today neurologist office--Md Romy Sargent at [phone]-- to confirm plan and ASA dose but not able to reach left my # for a call back w front desk specialist staff -continue care w PCP in [...] microalbuminuria due to type 2 diabetes mellitus ([facility]) 12/22/2020 Overview (08/14/2023): not on last labs 11/2022 History of hysterectomy for benign disease 12/21 Overview (08/18/2022): hysterectomy 2013 for myeloma Hyperparathyroidism 05/03/2018 Overview (08/18/2022): Thought [...] organization. Date Type Department Care Team Description 10/18/2024 Results Follow-Up [address] [address] Jose Juan Durbin ANP Albumin, Random Urine W/Creatinine 10/17/2024 10:00 AM EDT Office Visit [facility] [address] [place] [phone] Jose Juan Durbin ANP Screening for colon cancer (Primary Dx); Type 2 diabetes mellitus with hyperlipidemia (CMS/HCC) (CMS/HCC) 10/17/2024 Orders Only [facility] [address] [place] [phone] Jose Juan Durbin ANP 10/17/2024 Travel 10/16/[address] [address] Jose Juan Durbin ANP chart prep 10/10/2024 9:00 AM EDT Office Visit [facility] OPTOMET[facility] [address] [place] [address] Gisel Watts, OD Type 2 diabetes mellitus without ophthalmic manifestations (CMS/HCC) (Primary Dx); Hypertensive retinopathy of both eyes; History of CVA (cerebrovascular accident); Dry eyes; Hyperopia of both eyes with astigmatism and presbyopia 10/10/2024 Travel 10/03/2024 Refill [facility] [address] [place] [address] Jose Juan Durbin ANP Cerebrovascular accident (CVA), unspecified mechanism ([facility]); Gastroesophageal reflux disease, unspecified whether esophagitis present 09/24/2024 Refill [facility] [address] [place] [address] Jose Juan Durbin ANP Type 2 diabetes mellitus without complication, without long-term current use of insulin ([facility]) 09/18/2024 Refill [facility] [place] [address] Jose Juan Durbin ANP 09/05/2024 2:30 PM EDT Clinical Support [address] [place] [address] Flavia Bliss, RN B12 deficiency 09/05/2024 Orders Only [address] [place] [address] Britta Shin, MARANDA B12 deficiency 09/05/2024 Travel 09/03/2024 Orders Only [address] [place] [address] Jose Juan Durbin ANP 08/29/2024 1:30 PM EDT Clinical Support [address] [place] [address] Britta Shin, MARANDA B12 deficiency 08/29/2024 Travel 08/22/2024 1:00 PM EDT Clinical Support [address] [place] [address] Petrona Mendoza, RN B12 deficiency 08/22/2024 Travel 08/15/2024 1:30 PM EDT Clinical Support [address] [place] [address] Flavia Bliss, RN B12 deficiency 08/15/2024 Travel 08/13/2024 10:00 AM EDT Office Visit [facility] [place] [address] Nydia Rhodes MD Acute bacterial conjunctivitis of left eye (Primary Dx) 08/06/2024 2:30 PM EDT Clinical Support [address] [place] [address] Petrona Mendoza, RN B12 deficiency 08/06/2024 Travel 07/30/2024 2:30 PM EDT Clinical Support [facility] [address] [place] [address] Petrona Mendoza, MARANDA B12 deficiency 07/30/2024 Travel from Last 3 Months Immunizations Immunization [...] Description 01/09/2025 9:30 AM EST Office Visit [facility] OPT[facility] [address] [place] [address] Gisel Watts, WILMAN [address] [place] [address] Health Maintenance Due Date Last Done Comments [...] Screening 10/10/2025 10/10/2024 Eye Exam 10/10/2026 10/10/2024, 090 05/2024, 10/10/2024, Additional history exists DTaP/Tdap/Td Vaccines [...] Type 2 diabetes mellitus with hyperlipidemia (CMS/HCC) ([facility]) POCT GLUCOSE Routine 10/17/2024 11:02 AM EDT Type 2 diabetes mellitus with hyperlipidemia (CMS/HCC) ([facility]) OCT, OPTIC NERVE - OU - BOTH EYES Routine 10/10/2024 10:44 AM EDT Hypertensive retinopathy of both eyes BI MAMMOGRAM SCREENING TOMOSYNTHESIS BILATERAL Routine 09/03/2024 11:20 AM EDT LIPID PANEL, STANDARD Routine 07/16/2024 8:43 AM EDT Type 2 diabetes mellitus with hyperlipidemia (CMS/HCC) ([facility]) DoloresZZ HISTORICAL HPV MRNA E6/E7 Routine 12/05/2018 10:31 AM EDT from Last 3 Months or Most Recently Relevant to Health Maintenance Results * Albumin, Random Urine W/Creatinine (10/17/2024 11:30 AM EDT) Creatinine, Urine 39.99 mg/dL [facility] Microalbumin Urine 7.0 mg/L [facility] Microalbum Creatinine Ratio Ur 17.5 <30 ug/mg cr [facility] Comment:Albumin/Creatinine R atio Reference Ranges: Normal: < 30 ug/mg creatinine Microalbuminuria: 30 - 300 ug/mg creatinineClinical Albuminuria: > 300 ug/mg creatinine 10/17/2024 11:3 0 AM EDT 10/17/2024 5:20 PM EDT us Jose Juan Durbin ANP LAB URINE ORDERABLES Final Resul t [facility] [address] [place] [phone] * (ABNORMAL) POCT Hgb A1c (10/17/2024 11:03 AM EDT) Hemoglobin A1C 6.6(A) 4.0 - 5.7 % QC Media Lot # [id number] Lot# Expiration Date [id number] Blood 10/17/2024 11:0 3 AM EDT us Jose Juan Durbin ANP POINT OF CARE TEST ENTER/EDIT OR DERABLES Final Result * POCT Glucose (10/17/2024 11:02 AM EDT) Glucose Blood, POC 144 60 - 200 mg/dL QC Media Lot # [id number] Lot# Expiration Date [id number] Blood Capillary blood specimen / Unknown 10/17/2024 11:02 AM EDT us Jose Juan Durbin ANP [...] understanding of findings and management plan. Gisel Watts OD OPHTH TOMOGRAPHY Final Result * BI Mammogram Screening Tomosynthesis Bilateral (09/03/2024 11:20 AM EDT) Anatomical Region Laterality Modality Breast Bilateral Mammography 09/03/2024 11:2 0 AM EDT Narrative 09/13/2024 10:05 AM EDT [facility] [address] [place] [address] Mammography Report Signed Patient: Tamiko Rehman MR#: [id number] : 1965 Acct:[id number] Age/Sex: 59 / F ADM Date: 09/03/24 Loc: HO.MAMMO Attending Dr: Jose Juan Durbin NP Ordering Physician: JOSE JUAN DURBIN NP Results: 1Negative Date of Service: 09/03/24 Follow Up: 1 Year From [facility] Mammogram Procedure(s): MM tomosynthesis screening BI Accession Number(s): [id number] cc: JOSE JUAN DURBIN NP EXAMINATION: MM [...] 09/13/24 1002 DD/ 1120 TD/TT: 09/03/24 1141 Model Maker Plaster: Procedure Note Torstenter, Image - 09/13/2024 [facility] [address] [place] [address] Mammography Report Signed Patient: Tamiko Rehman EMR#: [id number] : 1965Acct:[id number] Age/Sex: 59 / FADM Date: 09/03/24 Loc: HO.MAMMO Attending Dr: Jose Juan Durbin NP Ordering Physician: JOSE JUAN DURBIN NPResults: 1Negative Date of Service: 09/03/24Follow Up: 1 Year From Orig inal Mammogram Procedure(s): MM tomosynthesis screening BI Accession Number(s): [id number] cc: JOSE JUAN DURBIN NP EXAMINATION: MM [...] 09/13/24 1002 DD/ 1120 TD/TT: 09/03/24 1141 Model Maker Plaster: us Jose Juan Durbin ANP IMG BI PROCEDURES Final Result * (ABNORMAL) Lipid Panel, Standard (07/16/2024 8:43 AM EDT) Triglycerides 122 <150 mg/dL [facility] Comment:Desirable Triglyceri de: less than 150 mg/dLBorderline High Triglyceride 150-199 mg/dLHigh Triglyceride: 200-499 mg/dLVery High Triglyceride: greater than or equal to 5OO mg/dL Cholesterol 131 <200 mg/dL [facility] Comment:Desirable Cholestero l: less than 200 mg/dLBorderline High Cholesterol: 200-239 mg/dLHigh Cholesterol: greater than 239 mg/dL LDL Cholesterol Calculated 73 <100 mg/dL [facility] Comment:Desirable LDL: less than 100 mg/dLNear Optimal/Above Optimal LDL: 110- 129 mg/dLBorderline High LDL: 130-159 mg/dLHigh LDL: 160-189 mg/dLVery High LDL: greater than or equal to 190 mg/dL HDL Cholesterol 34(L) >40 mg/dL [facility] Comment:Desirable HDL: great er than 40 mg/dL Note: This HDL assay may give artificially low results in patients with liver disease. Blood Venous blood specimen / Unknown 07/16/2024 8:43 AM EDT 07/16/2024 11:19 AM EDT us Jose Juan Durbin ANP LAB BLOOD ORDERABLES Final Resul t [facility] [address] [place] [phone] * HPV mRNA E6/E7 (12/05/2018 10:31 AM EDT) HPV mRNA E6/E7 Not Detected NOT DETECTED [facility] Comment: This test was performed using the APTIMA(R) HPV Assay ([employer] This assay detects E6/E7 viral messenger RNA (mRNA) from 14 high-risk HPV types (16,18,31,33,35,39,45,51, 52,56,58,59,66,68). For additional information please refer to: http://education.[employer].Alliqua/faq/MCS324c0 (This link is being provided for informational/ educational purposes only.) The analytical performance characteristics of this assay have been determined by [employer] [place], [place]. The modifications have not been cleared or approved by the FDA. This assay has been validated pursuant to the CLIA regulations and is used for clinical purposes. Test Performed by [employer], [employer] [facility], [address] [place] [address] Juan José Mcgowan M.D., Ph.D., Director of Laboratories , CLIA [id number] Please note: Effective 10/19/2015, HPV testing will be performed using [employer]'s APTIMA test which targets mRNA. Detecting mRNA instead of DNA, as in older methods, offers significant improvements in specificity. 12/05/2018 10:3 1 AM EDT us Adali Roldan CNM HISTORICAL/NON ORDERABLE LABS Final Result [facility] Anywhere [address] from Last 3 Months or Most Recently Relevant to Health Maintenance Insurance [facility] C3 Care Teams Psychiatric Nurse Relationship Specialty Start Date End Date Jose Juan Durbin ANP [address] [place] [phone] PCP - General Family Medicine 04/04/22
--- OUTSIDE RECORDS SUMMARY | 2024-10-24 09:22 | XMS_ITS | Encounter Summary ---
Author Organization [employer] Address 75 [facility] 7t [place] [address] Care Team Providers Care District Sales Leader Name Role Phone Marybeth Cody Primary Care Provider [phone] Reason for Visit * Reason Onset Date Comments FYI 11/08/2023 Encounter Details Date Type Department Care Team ([facility] st Contact Info) Description 11/08/2023 Telephone [facility] [address] [place], [place] [phone] Marybeth Cody ANP [address] [place], [place] [phone] FYI Social History Tobacco Use Types Packs/Day Years Used Date Smoking Tobacco: Never Smokeless Tobacco: Never Alcohol Use Standard Drinks/Week Comments Not Currently 0 (1 standard drink = 0.6 oz pur e alcohol) Housing Stability Answer Date Recorded What is your housing situation today? I do not have housing (Staying with others, in a hotel, in a mcc, living outside on the street, on a [...] to inform is currently at rehabilitation in [facility]. States had went to [facility] on 10/23/23 due to a stoke and then was transferred to rehabilitation on 10/27 and is unsure when she will be getting out so pt requested for 11/13/23 appt to be canceled. documented in this encounter Plan of Treatment Upcoming Encounters Date Type Department Care Team (Late st Contact Info) Description 01/09/2025 9:30 AM EST Office Visit [facility] [address] [place] [address] Gisel Watts, WILMAN [address] [place] [address] documented as of this encounter Visit Diagnoses Not on filedocumented in this encounter Care Teams District Sales Leader Relationship Specialty Start Date End Date Marybeth Cody ANP [address] [place] [address] PCP - General Family Medicine 04/04/22 documented as of this encounter
--- OUTSIDE RECORDS SUMMARY | 2024-10-24 09:22 | XMS_ITS | Encounter Summary ---
Author Organization [employer] Address [address] [facility] 7t [place] [address] Care Team Providers Care Regional Office Coordinator Name Role Phone Marybeth Cody Primary Care Provider [phone] Reason for Visit * Reason Comments Med Refill Encounter Details Date Type Department Care Team (Late st Contact Info) Description 09/18/2024 Refill [facility] [address] [place], [place] [phone] Marybeth Cody ANP [address] [place], [place] [phone] Social History Tobacco Use Types Packs/Day Years [...] Description 01/09/2025 9:30 AM EST Office Visit [facility] OPTOMETRY [address] [place] [address] Gisel Watts OD [address] [place] [address] documented as of this encounter Visit Diagnoses Not on filedocumented in this encounter Additional Health Concerns Assessment Noted Time PHQ-9 Depression Total Score: 18 025 3:11 PM EDT documented as of this encounter Care Teams Regional Office Coordinator Relationship Specialty Start Date End Date Marybeth Cody ANP [address] [place] [address] PCP - General Family Medicine 04/04/22 documented as of this encounter
--- OUTSIDE RECORDS SUMMARY | 2024-10-24 09:22 | XMS_ITS | Clinical Summary ---
Author Organization [facility] ity Address [address] [place] [address] Care Team Providers Care Major Sales Associate Name Role Phone Unavailable Primary Care Provider [...] 2016 Zoster Vaccines (1 of 2) 2016 Depression Screening 02/07/2024 COVID-19 Vaccine (1 - 2023-2 5 season) 2024 Influenza Vaccine (#1) 2024 RSV Immunization Adult Patie nts (1 - 1-dose 75+ series) 2041 HIB Vaccines Aged Out No longer eligi [...]
--- OUTSIDE RECORDS SUMMARY | 2024-10-24 09:22 | XMS_ITS | Encounter Summary ---
Author Organization [employer] [facility] Address 75 [facility] 7t [place] [address] Care Team Providers Care Knitting Supervisor Name Role Phone Marybeth Cody Primary Care Provider [phone] Reason for Visit * Reason Comments Med Refill Encounter Details Date Type Department Care Team (Late st Contact Info) Description 10/17/2022 Refill [facility] [address] [place] [address] Marybeth Cody ANP [address] [place] [address] Social History Tobacco Use Types Packs/Day Years [...] Description 01/09/2025 9:30 AM EST Office Visit [facility] OPTOMETRY [address] [place], [place] [phone] Gisel Watts OD [address] [place] [address] documented as of this encounter Visit Diagnoses Not on filedocumented in this encounter Care Teams Knitting Supervisor Relationship Specialty Start Date End Date Marybeth Cody ANP [address] [place] [address] PCP - General Family Medicine 04/04/22 documented as of this encounter
--- OUTSIDE RECORDS SUMMARY | 2024-10-24 09:22 | XMS_ITS | Encounter Summary ---
Author Organization [employer] Address 75 [facility] 7 [place] [address] Care Team Providers Care Radio Control Crane Operator Name Role Phone Marybeth Cody Primary Care Provider [phone] Reason for Visit * Reason Onset Date Comments Appointment Request 05/01/2024 Encounter Details Date Type Department Care Team ([facility] st Contact Info) Description 05/01/2024 Telephone [facility] [address] [place], [place] [phone] Marybeth Cody ANP [address] [place], [place] [phone] Appointment Request Social History Tobacco Use Types Packs/Day Years Used Date Smoking Tobacco: Never Smokeless Tobacco: Never Alcohol Use Standard Drinks/Week Comments Not Currently 0 (1 standard drink = 0.6 oz pur e alcohol) Housing Stability Answer Date Recorded What is your housing situation today? I do not have housing (Staying with others, in a hotel, in a care home, living outside on the street, on a [...] pt requesting to R/s Appt from 01/22/24. Alcoholism Worker Offered Pt appt for 06/27/24 but states thatit was too far away and wants a closer appt. Contact pt at [phone] documented in this encounter Plan of Treatment Upcoming Encounters Date Type Department Care Team (Late st Contact Info) Description 01/09/2025 9:30 AM EST Office Visit [facility] [address] [place] [address] Gisel Watts OD [address] [place] [address] documented as of this encounter Visit Diagnoses Not on filedocumented in this encounter Care Teams Radio Control Crane Operator Relationship Specialty Start Date End Date Marybeth Cody ANP [address] [place] [address] PCP - General Family Medicine 04/04/22 documented as of this encounter
--- OUTSIDE RECORDS SUMMARY | 2024-10-24 09:22 | XMS_ITS | Encounter Summary ---
Author Organization [employer] Address [address] [facility] [address] [place] [address] Care Team Providers Care Tooth Inspector Name Role Phone Marybeth Cody Primary Care Provider [phone] Reason for Visit * Reason Onset Date Comments Durable Medical Equipment 11/30/2023 Encounter Details Date Type Department Care Team ([facility] st Contact Info) Description 11/30/2023 Telephone [facility] [address] [place], [place] [phone] Marybeth Cody ANP [address] [place] [address] Durable Medical Equipment Social History Tobacco Use [...] - 11/30/2023 1:56 PM EDT [facility] from [facility] with [facility] calling in regards to DME they need faxed over. DME: transport wheelchair shower transfer bench (2) 6 inch grab bar. Bed side commode If any questions you can contact Ashlyn at [phone]. documented in this encounter Plan of Treatment Upcoming Encounters Date Type Department Care Team (Late st Contact Info) Description 01/09/2025 9:30 AM EST Office Visit [facility] [address] [place] [address] Gisel Watts OD [address] [place] [address] documented as of this encounter Visit Diagnoses Not on filedocumented in this encounter Care Teams Tooth Inspector Relationship Specialty Start Date End Date Marybeth Cody ANP [address] [place] [address] PCP - General Family Medicine 04/04/22 documented as of this encounter
[2024-10-24 12:36] LABS: Parathyroid Hormone Intact 58.2 pg/mL (8.7-77.1)
[2024-10-24 12:39] LABS: Anion Gap 15 (12-20); Blood Urea Nitrogen 27 mg/dL (9-16); Calcium 9.5 mg/dL (8.4-10.2); Carbon Dioxide 23 mmol/L (22-29); Chloride 107 mmol/L (96-108); Estimated Glomerular Filt Rate > 60; Potassium 4.1 mmol/L (3.3-5.1); Sodium 141 mmol/L (135-145)
[2024-10-24 12:50] LABS: Folate 4.2 ng/mL (> or = 4.0); Vitamin B12 506 pg/mL (200-900)
== END 2024-10-24 08:22 | disposition home or self-care (01) ==
LOC: HO.HHCL 08:21
PROVIDERS: PCP Nurse Practitioner Primary Care; Visit Provider Nurse Practitioner Primary Care
DX: E21.3 Hyperparathyroidism, unspecified (principal); E53.8 Deficiency of other specified B group vitamins
CPT/HCPCS: 36415; 80048; 82607; 82746; 83090; 83970; 84443